=== PATIENT | male | born 1950 | race African-American/Black ===

== ENCOUNTER 2017-08-14 14:10 | Inpatient (IN) | payer OTHER, BC ==
[2017-08-14] VITALS (8 sets, daily range): BP systolic 152–187
[~2017-08-14] VITALS: Ht 175.3 cm; Wt 95.3 kg
[~2017-08-14 14:10] MED LIST: LEVE1000 PO; METO25TA6 PO; NIFE60TA83 PO; RIVA20TA PO; ROSU20TA PO; VALS160T2 PO
--- NOTE | 2017-08-14 14:10 | NUR ---
Patient brought in BLS c/c unable to urinate and blood in stool.
--- NOTE | 2017-08-14 14:12 | NUR ---
Patient placed in bed 2.
--- NOTE | 2017-08-14 14:30 | NUR ---
MD Mejias at bedside.
[2017-08-14] MEDS ORDERED: NACL 0.9% 1,000 ML IV SCH (14:58)
[2017-08-14] MEDS ORDERED: NACL 0.9% 1,000 ML IV ONE (15:15)
[2017-08-14 15:31] LABS: INR 1.2 (0.80-1.20); PROTHROMBIN TIME 12.5 SECS (9.5-12.5)
[2017-08-14 15:35] LABS: HEMATOCRIT 50.9 % (36-54); HEMOGLOBIN 16.8 g/dL (14.0-18.0); LYMPHOCYTES # (AUTO) 0.6 K/uL (1.0-5.5); MEAN CORPUSCULAR HEMOGLOBIN 31 pg (27-31); MEAN CORPUSCULAR HGB CONC 33 % (32-36); MEAN CORPUSCULAR VOLUME 93 fL (79.0-98.0); MONOCYTES # (AUTO) 0.4 K/uL (0.0-1.0); MONOCYTES % (AUTO) 7.6 % (1.7-9.3); NEUTROPHILS # (AUTO) 4.1 K/uL (1.8-7.7); PLATELET COUNT (AUTO) 142 K/uL (130-430); RED BLOOD CELL COUNT(AUTO) 5.46 MIL/uL (4.2-6.2); RED CELL DISTRIBUTION WIDTH 12.8 % (9.0-15.0); WHITE BLOOD COUNT (AUTO) 5.2 K/uL (4.8-10.8)
[2017-08-14 15:39] LABS: BASOPHILS % (AUTO) 0.4 % (0.0-2.0); EOSINOPHILS # (AUTO) 0.1 K/uL (0.0-0.4)
[2017-08-14 15:40] LABS: CALCIUM 9.3 mg/dL (8.4-11.0); CREATININE 1.24 mg/dL (0.55-1.30); POTASSIUM 4.1 mmol/L (3.5-5.1)
[2017-08-14 16:00] LABS: ALBUMIN 3.6 g/dL (3.4-4.8); TOTAL BILIRUBIN 1.4 mg/dL (0.0-1.0)
[2017-08-14 16:07] LABS: BILIRUBIN,URINE NEGATIVE (NEGATIVE); CLARITY/URINE CLEAR (CLEAR); COLOR,URINE YELLOW (YELLOW); GLUCOSE,URINE NEGATIVE (NEGATIVE); KETONES,URINE TRACE (NEGATIVE); LEUKOCYTE ESTERASE ,URINE NEGATIVE (NEGATIVE); NITRITE, URINE NEGATIVE (NEGATIVE); PH,URINE 5.5 (5.0-8.0); PROTEIN URINE 2+ (NEGATIVE); UROBILINOGEN,URINE 0.2 (0.2-1.0)
[2017-08-14 16:08] LABS: BLOOD, URINE TRACE (NEGATIVE)
[2017-08-14 16:29] LABS: BACTERIA,URINE FEW /HPF (None Seen); WBC,URINE 0-3 /HPF (0-3)
--- NOTE | 2017-08-14 16:30 | NUR ---
Patient reassessed resting comfortably remains on monitoring analyst w/ SR noted, VSS, IV infusing well no infiltration noted, condition stable. Pt has no complaints at this time.
[2017-08-14] MEDS ORDERED: hydrALAZINE HCL 20 MG/ML VIAL IVP ONE (17:00)
[2017-08-14 17:15] LABS: LYMPHOCYTES # (AUTO) 0.5 K/uL (1.0-5.5)
[2017-08-14 17:34] LABS: HEMOGLOBIN 16.5 g/dL (14.0-18.0)
--- NOTE | 2017-08-14 17:45 | NUR ---
Patient will be admitted to [facility]. Admitted to unit. Will go to room . Belongings list completed. Summary report printed. Report will be given at bedside.
--- NOTE | 2017-08-14 17:46 | NUR ---
TO ICU. ADMITTED PT TO ROOM 3, PT AWAKE AND ALERT, SALINE LOCK IN LEFT HAND, 22 GAUGE CATHETER, PT DENIES CHEST PAIN, TURNED PT TO HIS SIDE, MODERATE AMOUNT OF BOWEL MOVEMENT, BROWNISH-RED COLOR, PT AFRAID TO TURN OR MOVE, "COZ EACH TIME I TURN I FEEL SOMETHING IS COMING OUT FROM MY BUTT", GOOD PERINEAL CARE RENDERED, CHG WIPES USED TO HIS TRUNK, ARMS, LEGS, JEAN CATHETER IN PLACE.
[2017-08-14 17:51] LABS: BASOPHILS # (AUTO) 0.1 K/uL (0.0-0.2); BASOPHILS % (AUTO) 1.9 % (0.0-2.0); EOSINOPHILS % (AUTO) 0.2 % (0.0-4.0); HEMATOCRIT 50.8 % (36-54); LYMPHOCYTES % (AUTO) 6.6 % (20.5-51.5); MEAN CORPUSCULAR HEMOGLOBIN 30 pg (27-31); MEAN CORPUSCULAR HGB CONC 33 % (32-36); MEAN CORPUSCULAR VOLUME 92 fL (79.0-98.0); MONOCYTES # (AUTO) 0.5 K/uL (0.0-1.0); MONOCYTES % (AUTO) 7.5 % (1.7-9.3); NEUTROPHILS # (AUTO) 5.8 K/uL (1.8-7.7); NEUTROPHILS % (AUTO) 83.8 % (40.0-70.0); PLATELET COUNT (AUTO) 157 K/uL (130-430); RED CELL DISTRIBUTION WIDTH 12.6 % (9.0-15.0); WHITE BLOOD COUNT (AUTO) 6.9 K/uL (4.8-10.8)
[2017-08-14] MEDS ORDERED: PANTOPRAZOLE SODIUM 40 MG in NS 50 ML IV SCH (18:15)
[2017-08-14] MEDS ORDERED: PANTOPRAZOLE SODIUM 80 MG in NS 100 ML IV ONE (18:15)
--- NOTE | 2017-08-14 18:28 | NUR ---
CONSULT. MESSAGE LEFT TO AYAN TO CONSULT DR COCHRAN, ANSWERING SERVICE STATED THAT DR HARRIS SPEARS IS REVERBERATORY FURNACE SUPERVISOR FOR [facility].
[2017-08-14] MEDS ORDERED: PANTOPRAZOLE SODIUM 40 MG/VIAL (PROTONIX) IVP ONE (18:30)
--- NOTE | 2017-08-14 18:37 | NUR ---
CONSULT. CALLED ANSWERING SERVICE, SPOKE TO LEENA, MESSAGE TO CONSULT DR PALOMINO, GOVERNOR ASSEMBLER HYDRAULIC IS DR OH.
--- NOTE | 2017-08-14 18:41 | NUR ---
. DR WOOTEN CAME IN AND EXAMINED PT. INFORMED OF LATEST TROPONIN. DR SPEARS RETURNED THE CALL. READ OUT PT'S TROPONIN LEVELS AND EKG, PT ON SINUS RHYTHM, DENIES CHEST PAINS, NO SHORTNESS OF BREATH. STATED THAT HE WILL COME IN TO SEE PT TOMORROW.
--- NOTE | 2017-08-14 19:00 | NUR ---
IV. ANOTHER IV ACCESS INSERTED IN LEFT A/C, USED 20 GAUGE CATHETER, NOTED GOOD BLOOD RETURN.
--- NOTE | 2017-08-14 19:10 | NUR ---
[place]ble of care: Received patient AAO x 4. Patient on RA, saturating at 95%. IV site: 20G LAC infusing NS @ 60mls/hr, no redness or infection noted. Patient on raman, urine draining to gravity. Safety precautions in place. POC discussed, no further questions at this time. Code status discussed and patient confirms full code. HOB elevated, call light within reach. Bed locked, in lowest position. Will continue to monitor.
--- NOTE | 2017-08-14 19:12 | NUR ---
. DR OH CALLED. REPORTED PT'S STATUS, CURRENT HEMOGLOBIN 16.5 , HEMATOCRIT 50.8, STATED "WILL COME IN TO SEE PT TOMORROW".
[2017-08-14] MEDS: LR 1,000 ML IV SCH (19:15)
[2017-08-14] MEDS: HYDROCORTISONE ACETATE 1 SUPP (ANUSOL HC) RC SCH (20:14)
[2017-08-14] MEDS: levETIRAcetam 500 MG TABLET PO SCH (21:19)
[2017-08-14] MEDS: METOPROLOL TARTRATE 25 MG TABLET PO SCH (21:20)
[2017-08-14] MEDS ORDERED: NIFEDIPINE 30 MG TAB.ER.24 PO ONE (23:42)
[2017-08-15] VITALS (11 sets, daily range): BP systolic 136–173
--- NOTE | 2017-08-15 01:25 | NUR ---
notified with pt c/o rectal pain scale 10/10. also elevated bp. orders received.
[2017-08-15] MEDS ORDERED: MORPHINE 4 MG/ML INJ. SYRINGE IVP PRN (01:30)
[2017-08-15] MEDS ORDERED: MORPHINE 2 MG/ML INJ. SYRINGE IVP PRN (01:30)
[2017-08-15] MEDS ORDERED: cloNIDine HCL 0.1 MG TABLET PO PRN (01:30)
[2017-08-15] MEDS ORDERED: ONDANSETRON HCL 4 MG/2 ML VIAL IVP PRN (01:30)
[2017-08-15] MEDS ORDERED: MORPHINE 4 MG/ML INJ. SYRINGE ONE (01:36)
[2017-08-15] MEDS ORDERED: ONDANSETRON HCL 4 MG/2 ML VIAL ONE (01:37)
[2017-08-15] MEDS ORDERED: cloNIDine HCL 0.1 MG TABLET ONE (01:44)
--- NOTE | 2017-08-15 01:45 | NUR ---
PRN pain medication given per MD order. No signs of SOB or acute distress noted. Will continue to monitor.
--- NOTE | 2017-08-15 04:50 | NUR ---
Pt resting in bed. VSS. Denies any pain at this time. Will continue to monitor.
[2017-08-15 07:00] LABS: CALCIUM 8.5 mg/dL (8.4-11.0); CREATININE 1.02 mg/dL (0.55-1.30); POTASSIUM 3.1 mmol/L (3.5-5.1)
[2017-08-15 07:01] LABS: HEMATOCRIT 46.1 % (36-54); HEMOGLOBIN 15.2 g/dL (14.0-18.0); MEAN CORPUSCULAR HEMOGLOBIN 31 pg (27-31); MEAN CORPUSCULAR HGB CONC 33 % (32-36); MEAN CORPUSCULAR VOLUME 93 fL (79.0-98.0); PLATELET COUNT (AUTO) 151 K/uL (130-430); RED BLOOD CELL COUNT(AUTO) 4.99 MIL/uL (4.2-6.2); RED CELL DISTRIBUTION WIDTH 12.6 % (9.0-15.0); WHITE BLOOD COUNT (AUTO) 6.6 K/uL (4.8-10.8)
--- NOTE | 2017-08-15 07:15 | NUR ---
ENDORSEMENT Pt care endorsed to day shift RN.
[2017-08-15 07:22] LABS: TOTAL IRON BIND. CAPACITY 207 ug/dL (250-450)
[2017-08-15 07:23] LABS: ALBUMIN 2.9 g/dL (3.4-4.8); FREE T4 (FREE THYROXINE) 1.1 ng/dl (0.8-1.5); TOTAL BILIRUBIN 2.3 mg/dL (0.0-1.0)
--- NOTE | 2017-08-15 07:30 | NUR ---
AM ASSESSMENT Pt received laying in bed with eyes open. Pt is awake, alert and oriented to person time and place. Even and symmetrical rise and fall of chest, Pt on Room Air O2 saturation 97%. Pt states that he does have pain "in the butt" as stated by pt, but is currently 0/10 as of right now. Will continue to monitor pt. IV #20 Left AC infusing LR @ 60 cc/hr and #22 Left Hand S.L. No signs of injury or complaints of distress, will continue to monitor.
--- NOTE | 2017-08-15 08:19 | NUR ---
Nutrition Update Dale Scale 17 noted. Pt admitted for GI bleed Diet: clear liquid no red BMI: 31 kg/m2 RD to follow per nutrition care standards.
[2017-08-15] MEDS: PANTOPRAZOLE SODIUM 40 MG/VIAL (PROTONIX) IVP SCH ×2 (08:40→22:17)
[2017-08-15] MEDS: ATORVASTATIN 20 MG TABLET PO SCH (08:40)
[2017-08-15] MEDS: HYDROCORTISONE ACETATE 1 SUPP (ANUSOL HC) RC SCH ×2 (08:41→22:32)
[2017-08-15] MEDS: levETIRAcetam 500 MG TABLET PO SCH ×2 (08:41→22:17)
[2017-08-15] MEDS: VALSARTAN 160 MG TABLET (DIOVAN) PO SCH (08:41)
[2017-08-15] MEDS ORDERED: ROSUVASTATIN CALCIUM 5 MG/TAB (CRESTOR) PO SCH (09:00)
--- NOTE | 2017-08-15 09:10 | NUR ---
MD Dr. Ragland at bedside with pt.
[2017-08-15] MEDS: METOPROLOL TARTRATE 25 MG TABLET PO SCH ×2 (09:23→22:18)
[2017-08-15] MEDS: NIFEDIPINE 30 MG TAB.ER.24 PO SCH (09:23)
[2017-08-15] MEDS: LR 1,000 ML IV SCH (09:27)
--- NOTE | 2017-08-15 09:29 | NUR ---
NURSING CALLED UP DR COCHRAN, FOR CARDIAC CLEARANCE, PT FOR COLONOSCOPY PER DR SIMONS, LEFT MESSAGE TO MIREYA, ANSWERING SERVICE.
[2017-08-15 09:43] LABS: ATYPICAL LYMPHOCYTES % 0 % (0-0); BAND % (MANUAL) 3 % (0-6); BASOPHILS % (MANUAL) 0 % (0-2); EOSINOPHILS % (MANUAL) 0 % (0-7); LYMPHOCYTES % (MANUAL) 14 % (20-46); MONOCYTES % (MANUAL) 6 % (0-11)
[2017-08-15] MEDS ORDERED: KCL 20 mEq in 100 mL (PREMIX) 200 ML IV ONE (09:45)
[2017-08-15] MEDS ORDERED: POTASSIUM CHLORIDE 20 MEQ TAB.PRT.SR PO ONE ×2 (10:15)
[2017-08-15] MEDS ORDERED: TAMSULOSIN HCL 0.4 MG CAP PO ONE ×2 (10:15→10:45)
--- NOTE | 2017-08-15 10:50 | NUR ---
EKG Bedside EKG being performed for pt
--- NOTE | 2017-08-15 11:00 | NUR ---
ECHO Bedside ECHO being performed for pt.
--- NOTE | 2017-08-15 11:18 | NUR ---
Report Report given to Sheryl ex [id number]. Pt connected to portable monitor. Vital signs stable. No signs of injury or distress. Pt transferred to TELE.
--- NOTE | 2017-08-15 11:45 | NUR ---
patient transferred from ICU a this time. report given by nurse delgado. Patient in no distress at this time. patient made comfortable in bed. call light within reach. safety precautions observed. will continue to monitor.
--- NOTE | 2017-08-15 13:30 | NUR ---
PATIENT RESTING: Patient resting quietly. No acute distress noted. Vital signs within normal range.
--- NOTE | 2017-08-15 16:17 | NUR ---
JEAN CATHETER REMOVAL PATIENTS JEAN CATHETER WAS REMOVED AT THIS TIME. 10 CC SYRINGE WAS USED TO DEFLATE THE BALLOON. PATIENT IN NO DISTRESS TOLERATED WELL.
[2017-08-15] MEDS ORDERED: BISACODYL 5 MG TABLET.DR (DULCOLAX) PO ONE (17:00)
[2017-08-15] MEDS ORDERED: GOLYTELY / COLYTE SOLUTION 4 LITERS PO ONE (18:00)
--- NOTE | 2017-08-15 18:01 | NUR ---
PT HE WANT GET UP TO USE THE RESTROOM BUT WE TRY BUT SO HARD TO WALK I TOLD HIM TO USE THE URNAIL AND BED AVILA BUT HE REFUSE I TOLD HIS NURSE SHE TOLD ME DONT GET HIM UP BECAUSE HIS HARD AND HE WANT WALK IN ROOM
--- NOTE | 2017-08-15 19:00 | NUR ---
closing note all needs met through shift. care endorsed to mold shifter.
--- NOTE | 2017-08-15 19:30 | NUR ---
INITIAL NOTE Patient resting on the bed. No acute distress. Respiration even and unlabored. Alert, awake, verbally responsive with forgetful. Skin warm and dry to touch. Noted IV on left hand was out. Discussed the safety issue, use call light when need help, NPO after midnight, continue to drink Golytely, and plan of care, verbally understanding. Safety measure maintained. Bed locked with low position, padded side rails up. Call light within reached. Will insert new IV and continue to monitor.
--- NOTE | 2017-08-15 19:55 | NUR ---
A NEW IV INSERTED Restarted on RFA, gauge 22 with good blood return. Procedure tolerated well. Resumed current IVF of LR and regulated at 60ml/hr. Will observe for any signs of infiltration.
[2017-08-15] MEDS ORDERED: POTASSIUM CHLORIDE 20 MEQ TAB.PRT.SR PO SCH (21:00)
[2017-08-15] MEDS ORDERED: TAMSULOSIN HCL 0.4 MG CAP PO SCH (21:00)
--- NOTE | 2017-08-15 21:22 | NUR ---
ASSISTED TO BATHROOM WITH LOOSE BM
[2017-08-15] MEDS: POTASSIUM CHLORIDE 20 MEQ TAB.PRT.SR PO SCH (22:17)
--- NOTE | 2017-08-15 23:15 | NUR ---
BATHROOM Assisted patient to bathroom with brownish loose BM. Safety measure maintained. Call light within reached. Continue to monitor.
[2017-08-16] VITALS: BP_SYST 141
--- NOTE | 2017-08-16 | NUR ---
STARTED NPO AT THIS TIME Patient resting on the bed. No acute distress. IV intact, IVF infusing well. Assisted patient to bathroom with loose BM. However, Golytely not completed. Patient stated that the stomach full cannot drink that much. Will do tape enema in the morning. Safety measure maintained. Bed in low position, padded side rails up. Call light within reached. Continue to monitor.
--- NOTE | 2017-08-16 | NUR ---
Opening note Received patient awake, alert, and oriented x4. No s/s of distress noted. IV noted to the left hand g20 running at prescribed rate. BUE are strong, BLE are weak. Plan of care reviewed, patient verbalizes understanding. Bed is down, locked, side rails up x2, call light within reach, bed alarm on, seizure precautions in place. Will continue to monitor. Addendum: 08/17/17 at 0046 by Nanci Pandey RN correction; wrong time entered
--- NOTE | 2017-08-16 02:40 | NUR ---
ROUND Patient resting on the bed with eyes closed. No acute distress. Respiration even and unlabored. IV intact, IVF infusing well. Safety measure maintained. Bed locked with low position, padded side rails up. Call light within reached. Continue to monitor.
--- NOTE | 2017-08-16 04:20 | NUR ---
TAP WATER ENEMA STARTED
--- NOTE | 2017-08-16 06:48 | NUR ---
CLOSING NOTE Patient resting on the bed. No acute distress. Patient refused to do tap water enema any more because too tired. Total of 12L of tap water done but still with watery brown output, not clear yet. IV intact, IVF infusing well. No seizure activity noted during shift. All need met. Hourly rounding during shift. Safety measure maintained. Call light within reached. Bed in low position, padded side rails up, bed alarm on. Will endorse to morning shift nurse.
--- NOTE | 2017-08-16 07:09 | NUR ---
PAGE CALLED FOR DR. SIMONS. SPOKE TO DYLON, DIALED [phone].
[2017-08-16 07:18] LABS: POTASSIUM 3.1 mmol/L (3.5-5.1)
[2017-08-16 07:19] LABS: BASOPHILS % (AUTO) 0.4 % (0.0-2.0); EOSINOPHILS # (AUTO) 0.1 K/uL (0.0-0.4); EOSINOPHILS % (AUTO) 0.9 % (0.0-4.0); HEMATOCRIT 50.8 % (36-54); HEMOGLOBIN 16.2 g/dL (14.0-18.0); LYMPHOCYTES # (AUTO) 0.8 K/uL (1.0-5.5); LYMPHOCYTES % (AUTO) 11.9 % (20.5-51.5); MEAN CORPUSCULAR HEMOGLOBIN 30 pg (27-31); MEAN CORPUSCULAR HGB CONC 32 % (32-36); MEAN CORPUSCULAR VOLUME 93 fL (79.0-98.0); MONOCYTES # (AUTO) 0.4 K/uL (0.0-1.0); MONOCYTES % (AUTO) 6.6 % (1.7-9.3); NEUTROPHILS # (AUTO) 5.3 K/uL (1.8-7.7); NEUTROPHILS % (AUTO) 80.2 % (40.0-70.0); PLATELET COUNT (AUTO) 160 K/uL (130-430); RED BLOOD CELL COUNT(AUTO) 5.44 MIL/uL (4.2-6.2); RED CELL DISTRIBUTION WIDTH 12.9 % (9.0-15.0); WHITE BLOOD COUNT (AUTO) 6.6 K/uL (4.8-10.8)
[2017-08-16] MEDS ORDERED: SORBITOL 70% SOLUTION, 30 ML UDBTL PO ONE (07:30)
[2017-08-16] MEDS ORDERED: BISACODYL 5 MG TABLET.DR (DULCOLAX) PO ONE (07:30)
[2017-08-16] MEDS ORDERED: MAGNESIUM CITRATE 300 ML ORAL SOLUTION PO ONE (07:30)
--- NOTE | 2017-08-16 07:30 | NUR ---
Initial notes: Patient awake, alert and oriented. Stable. I.V. access patent. Call light within reach. Safety and seizure precaution in placed. Dr. Ragland informed patient BM is no clear and table games shift manager nursed received new orders. Received report from table games shift manager.
--- NOTE | 2017-08-16 07:35 | NUR ---
TU MCCLURE CALLED BACK Received the call back from Dr. Ragland, informed MD patient the bowel still with watery brown color not clear yet. Patient did not completed Golytely only take half. Tap water enema did total 12L and almost 3hrs, patient refused to continue because too tired. Dr. Ragland with order Magnesium citrate 300ml,PO, Dulcolax 4 tabsPO, 5mg each tab, Sorbital 100ml PO. Order read back and okay to MD. Endorsed to morning shift Gabi HUITRON.
[2017-08-16 07:40] LABS: INR 1.6 (0.80-1.20); PROTHROMBIN TIME 16.7 SECS (9.5-12.5)
--- NOTE | 2017-08-16 08:15 | NUR ---
Medication: patient additional medication given for BM.
[2017-08-16 08:21] VITALS: BP_SYST 166
[2017-08-16] MEDS: HYDROCORTISONE ACETATE 1 SUPP (ANUSOL HC) RC SCH ×3 (08:33→21:58)
[2017-08-16] MEDS: PANTOPRAZOLE SODIUM 40 MG/VIAL (PROTONIX) IVP SCH ×2 (08:33→21:57)
[2017-08-16] MEDS: levETIRAcetam 500 MG TABLET PO SCH ×2 (08:33→21:56)
[2017-08-16] MEDS: TAMSULOSIN HCL 0.4 MG CAP PO SCH (08:34)
[2017-08-16] MEDS: POTASSIUM CHLORIDE 20 MEQ TAB.PRT.SR PO SCH ×2 (08:34→21:55)
[2017-08-16] MEDS: NIFEDIPINE 30 MG TAB.ER.24 PO SCH (08:34)
[2017-08-16] MEDS: METOPROLOL TARTRATE 25 MG TABLET PO SCH ×2 (08:35→21:56)
[2017-08-16] MEDS: ATORVASTATIN 20 MG TABLET PO SCH (08:36)
[2017-08-16] MEDS: VALSARTAN 160 MG TABLET (DIOVAN) PO SCH ×2 (08:36→21:57)
[2017-08-16] MEDS ORDERED: SIMETHICONE 40 MG/0.6 ML ML ONE (08:56)
[2017-08-16] MEDS ORDERED: POTASSIUM CHLORIDE 40 MEQ, LIDOCAINE JECT 2% PF 100 MG 50 MG in NS 250 ML IV ONE (10:45)
--- NOTE | 2017-08-16 11:00 | NUR ---
BM: Patient went to toilet and had a clear BM.
[2017-08-16] MEDS ORDERED: hydrALAZINE HCL 20 MG/ML VIAL IVP PRN (12:00)
[2017-08-16] MEDS: LR 1,000 ML IV SCH (12:10)
[2017-08-16 12:32] VITALS: BP_SYST 167
--- NOTE | 2017-08-16 13:45 | NUR ---
Transfer to G.I. lab: Patient transferred to G.I. lab for colonoscopy.
[2017-08-16] MEDS ORDERED: CHLORTHALIDONE 25 MG TABLET (HYGROTON) PO ONE (14:20)
--- NOTE | 2017-08-16 14:52 | NUR ---
DC plan is to return to [facility] [place]--On day of discharge, call [facility] as early as possible to schedule pickers material handlers for 3pm or earlier. Per pt, sister Hazel might be available to take him home to [facility] when he gets discharged. VARGAS HUITRON
[2017-08-16] MEDS: MIDAZOLAM HCL 5 MG/5 ML VIAL ONE ×2 (14:54→14:56)
[2017-08-16] MEDS: MEPERIDINE HCL/PF 100 MG/ML AMP ONE ×2 (14:54→14:56)
--- NOTE | 2017-08-16 16:25 | NUR ---
Back in his room: Patient colonoscopy done and back in his room.
--- NOTE | 2017-08-16 17:06 | NUR ---
rounds: patient on bed sleeping. no distress noted.
--- NOTE | 2017-08-16 18:55 | NUR ---
Closing notes: Patient on bed talking on the phone. Stable. Needs attended. Safety measures in placed. Call light within reach. Report will be given at night custodian.
--- NOTE | 2017-08-16 19:03 | NUR ---
Opening note Received patient awake, alert, and oriented x4. No s/s of distress noted. IV noted to the left hand g20 running at prescribed rate. BUE are strong, BLE are weak. Plan of care reviewed, patient verbalizes understanding. Bed is down, locked, side rails up x2, call light within reach, bed alarm on, seizure precautions in place. Will continue to monitor.
[2017-08-16 20:00] VITALS: BP_SYST 111
[2017-08-16 20:05] VITALS: BP_SYST 134
--- NOTE | 2017-08-16 21:01 | NUR ---
Rounds Patient assisted to the bathroom and safely back to bed. Patient tolerated well. SCDs placed back on BLE. Bed is down, locked, side rails up x2, call light within reach, bed alarm on, seizure precautions in place. Will continue to monitor.
--- NOTE | 2017-08-16 23:02 | NUR ---
Rounds Patient assisted to the bathroom and safely back to bed. Patient tolerated well. SCDs placed back on legs. Denies further needs at this time. Bed is down, locked, side rails up x2, call light within reach, bed alarm on, seizure precautions in place. Will continue to monitor.
--- NOTE | 2017-08-17 01:01 | NUR ---
Rounds Patient is resting in bed with eyes closed. No s/s of respiratory distress at this time. Bed is down, locked, side rails up x2, call light within reach, bed alarm on, seizure precautions in place. Will continue to monitor.
[2017-08-17 01:12] VITALS: BP_SYST 151
--- NOTE | 2017-08-17 03:03 | NUR ---
Rounds Patient is resting in bed. No s/s of respiratory distress noted. Bed is down, locked, side rails up x2, call light within reach, bed alarm on, seizure precautions in place. Will continue to monitor.
[2017-08-17] MEDS: LR 1,000 ML IV SCH ×2 (03:26→13:10)
--- NOTE | 2017-08-17 05:08 | NUR ---
Rounds Patient is resting in bed. No s/s of distress. Denies needs at this time. Bed is down, locked, side rails up x2, call light within reach, bed alarm on, seizure precautions in place. Will continue to monitor.
[2017-08-17 06:29] LABS: BASOPHILS % (AUTO) 0.5 % (0.0-2.0); EOSINOPHILS # (AUTO) 0.1 K/uL (0.0-0.4); HEMATOCRIT 50.5 % (36-54); HEMOGLOBIN 16.7 g/dL (14.0-18.0); LYMPHOCYTES # (AUTO) 0.7 K/uL (1.0-5.5); LYMPHOCYTES % (AUTO) 8.3 % (20.5-51.5); MEAN CORPUSCULAR HEMOGLOBIN 31 pg (27-31); MEAN CORPUSCULAR HGB CONC 33 % (32-36); MEAN CORPUSCULAR VOLUME 93 fL (79.0-98.0); MONOCYTES # (AUTO) 0.5 K/uL (0.0-1.0); MONOCYTES % (AUTO) 5.9 % (1.7-9.3); NEUTROPHILS # (AUTO) 7.2 K/uL (1.8-7.7); NEUTROPHILS % (AUTO) 84.3 % (40.0-70.0); PLATELET COUNT (AUTO) 169 K/uL (130-430); RED BLOOD CELL COUNT(AUTO) 5.44 MIL/uL (4.2-6.2); RED CELL DISTRIBUTION WIDTH 13.1 % (9.0-15.0); WHITE BLOOD COUNT (AUTO) 8.5 K/uL (4.8-10.8)
--- NOTE | 2017-08-17 06:40 | NUR ---
Closing note Patient is resting in bed with eyes closed. No s/s of respiratory distress noted at this time. IV is patent on left hand forearm g20 with fluids running at prescribed rate. All needs met and anticipated by noc. Bed is down, locked, side rails up x2, call light within reach, bed alarm on, seizure precautions in place. Will endorse to day shift nurse.
[2017-08-17 07:15] LABS: CREATININE 1.01 mg/dL (0.55-1.30); POTASSIUM 3.1 mmol/L (3.5-5.1)
--- NOTE | 2017-08-17 07:15 | NUR ---
INITIAL NOTE RECEIVED PATIENT FROM PROFESSIONAL ENGINEER NURSE, PATIENT IS AWAKE ALERT AND ORIENTED X4, PATIENT HAS NO SIGNS OF DISTRESS, PATIENT HAS IV IN LEFT HAND, FLUIDS CURRENTLY INFUSING, NO SIGNS OF INFILTRATION NOTED, INSTRUCTED PATIENT TO USE CALL MORAN IF ASSISTANCE IS NEEDED, PATIENT VERBALIZED UNDERSTANDING, CALL MORAN LEFT IN THE LOWEST POSITION, SIDE RAILS UP, SEIZURE PADS IN PLACE, FALL AND SEIZURE PRECAUTIONS IN PLACE, WILL CONTINUE TO MONITOR.
[2017-08-17 07:33] LABS: CALCIUM 9.1 mg/dL (8.4-11.0)
[2017-08-17 08:00] VITALS: BP_SYST 154
[2017-08-17] MEDS: PANTOPRAZOLE SODIUM 40 MG/VIAL (PROTONIX) IVP SCH ×2 (08:34→21:22)
[2017-08-17] MEDS: VALSARTAN 160 MG TABLET (DIOVAN) PO SCH ×2 (08:36→21:24)
[2017-08-17] MEDS: levETIRAcetam 500 MG TABLET PO SCH ×2 (08:36→21:23)
[2017-08-17] MEDS: ATORVASTATIN 20 MG TABLET PO SCH (08:36)
[2017-08-17] MEDS: METOPROLOL TARTRATE 25 MG TABLET PO SCH ×2 (08:37→21:23)
[2017-08-17] MEDS: NIFEDIPINE 30 MG TAB.ER.24 PO SCH (08:37)
[2017-08-17] MEDS: TAMSULOSIN HCL 0.4 MG CAP PO SCH (08:37)
[2017-08-17] MEDS: POTASSIUM CHLORIDE 20 MEQ TAB.PRT.SR PO SCH ×2 (08:37→21:24)
--- NOTE | 2017-08-17 08:43 | NUR ---
MEDICATION PATIENT RECEIVED MORNING MEDICATION, EDUCATED PATIENT ON POTENTIAL SIDE EFFECTS, PATIENT VERBALIZED UNDERSTANDING, NO OTHER NEEDS AT THIS TIME, WILL CONTINUE TO MONITOR, FALL AND SEIZURE PRECAUTIONS IN PLACE, WILL CONTINUE TO MONITOR.
[2017-08-17] MEDS ORDERED: CHLORTHALIDONE 25 MG TABLET (HYGROTON) PO SCH (09:00)
--- NOTE | 2017-08-17 10:25 | NUR ---
RN ROUNDS PATIENT RESTING IN BED WITH EYES CLOSED, NO SIGNS OF DISTRESS NOTED, BREATHING EVEN AND UNLABORED, CALL MORAN WITHIN REACH OF PATIENT, WILL CONTINUE TO MONITOR, FALL PRECAUTIONS IN PLACE
[2017-08-17 12:12] VITALS: BP_SYST 146
--- NOTE | 2017-08-17 12:40 | NUR ---
RN ROUNDS PATIENT WATCHING TV, PATIENT IN NO DISTRESS, PATIENT HAS NO COMPLAINTS OF PAIN, WILL CONTINUE TO MONITOR, FALL PRECAUTIONS IN PLACE.
--- NOTE | 2017-08-17 13:45 | NUR ---
PHYSICAL THERAPY CO-SIGN The Physical Therapy Progress Notes documented by Underground Miner have been reviewed. I concur with the documentation of this ALTERATION TAILOR APPRENTICE. Plan: continue PT as per plan of care if he remains in this hospital. Reviewed/Co-Signed by: Ana Luisa Espinosa, PT Documentation Done by: Pablo Argueta, ALTERATION TAILOR APPRENTICE Addendum: 08/17/17 at 1442 by Ana Luisa Espinosa PT Amended: Links added.
--- NOTE | 2017-08-17 14:30 | NUR ---
RN ROUNDS PATIENT RESTING WITH EYES CLOSED, NO SIGNS OF DISTRESS NOTED, PATIENT IN STABLE CONDITION, CALL MORAN LEFT NEXT TO PATIENT'S HAND, BED IN LOWEST POSITION, WILL CONTINUE TO MONITOR, FALL AND SEIZURE PRECAUTIONS IN PLACE.
[2017-08-17] MEDS ORDERED: POTASSIUM CHLORIDE 20 MEQ TAB.PRT.SR PO ONE (15:30)
[2017-08-17] MEDS ORDERED: QUEtiapine FUMARATE 25 MG TABLET PO ONE (16:00)
[2017-08-17 16:03] VITALS: BP_SYST 131
--- NOTE | 2017-08-17 16:14 | NUR ---
RN ROUNDS ASSISTED PATIENT TO RESTROOM, PATIENT TOLERATED WELL, NO OTHER NEEDS AT THIS TIME, WILL CONTINUE TO MONITOR, FALL AND SEIZURE PRECAUTIONS IN PLACE
--- NOTE | 2017-08-17 18:51 | NUR ---
CLOSING NOTE PATIENT RESTING IN BED WITH EYES CLOSED, NO SIGNS OF DISTRESS NOTED, PATIENT'S BREATHING IS EVEN AND UNLABORED, PATIENT'S IV INTACT, ALL NEEDS MET, WILL ENDORSE PATIENT TO FAITH HEALER NURSE, BED IN LOWEST POSITION, SIDE RAILS UP, BED ALARM ON, FALL AND SEIZURE PRECAUTIONS IN PLACE.
--- NOTE | 2017-08-17 19:54 | NUR ---
INITIAL NOTES RECEIVED PATIENT ON BED SLEEPING AND RESTING, ON SEMI GARCÍA'S POSITION, BREATHING EVEN AND UNLABORED, NO SOB NOTED, NO PAIN NOTED, STATED THAT HE IS CURRENTLY NOT HAVING ANY PAIN. MAINTAINED POSITION OF COMFORT MAINTAINED FALL AND SAFETY PRECAUTION, MAINTAINED PADDED SIDE RAILS. EXPLAINED THE PLAN OF CARE AND VERBALIZED UNDERSTANDING. ENCOURAGED TO DO DEEP BREATHING EXERCISES, AND RELAXATION. WILL CONTINUE TO MONITOR. CALL LIGHT WITHIN REACH.
[2017-08-17 20:00] VITALS: BP_SYST 111
[2017-08-17] MEDS: HYDROCORTISONE ACETATE 1 SUPP (ANUSOL HC) RC SCH (21:27)
[2017-08-17] MEDS: QUEtiapine FUMARATE 25 MG TABLET PO SCH (21:27)
--- NOTE | 2017-08-17 22:00 | NUR ---
RN ROUNDS PATIENT WAS ASSISTED TO THE BATHROOM TOLERATED WELL. MAINTAINED SAFETY PRECAUTION, BREATHING EVEN AND UNLABORED. WENT BACK TO THE BED SAFELY. WILL CONTINUE TO MONITOR CALL LIGHT WITHIN REACH.
[2017-08-18] VITALS: BP_SYST 121
--- NOTE | 2017-08-18 00:10 | NUR ---
RN ROUNDS PATIENT SLEEPING AND RESTING ON BED BREATHING EVEN AND UNLABORED, MAINTAINED ON POSITION OF COMFORT MAINTAINED SAFETY PRECAUTION, MAINTAINED PADDED SIDE RAILS. WILL CONTINUE TO MONITOR CALL LIGHT WITHIN REACH.
--- NOTE | 2017-08-18 02:18 | NUR ---
RN ROUNDS PATIENT ON BED SLEEPING AND RESTING, BREATHING EVEN AND UNLABORED, MAINTAINED POSITION OF COMFORT, MAINTAINED SAFETY AND FALL PRECAUTIONS. WILL CONTINUE TO MONITOR CALL LIGHT WITHIN REACH.
--- NOTE | 2017-08-18 04:11 | NUR ---
RN ROUNDS PATIENT ON BED SLEEPING AND RESTING BREATHING EVEN AND UNLABORED NO SOB NOTED. MAINTAINED SAFETY PRECAUTIONS MAINTAINED POSITION OF COMFORT PADDED SIDE RAILS MAINTAINED, CALL LIGHT WITHIN REACH WILL CONTINUE TO MONITOR.
--- NOTE | 2017-08-18 06:41 | NUR ---
CLOSING NOTES PATIENT ON BED SLEEPING AND RESTING BREATHING EVEN AND UNLABORED, NO SOB NOTED, MAINTAINED SAFETY AND FALL PRECAUTIONS, MAINTAINED POSITION OF COMFORT ENCOURAGED TO TURN FROM SIDE TO SIDE. MAINTAINED PADDED SIDE RAILS. NO PAIN NOTED. IV INTACT CLEAN AND DRY, WILL GIVE REPORT TO AM NURSE, WILL CONTINUE TO MONITOR, CALL LIGHT WITHIN REACH.
[2017-08-18 07:13] LABS: CALCIUM 9.3 mg/dL (8.4-11.0); CREATININE 1.23 mg/dL (0.55-1.30); POTASSIUM 3.8 mmol/L (3.5-5.1)
[2017-08-18 08:00] VITALS: BP_SYST 152
--- NOTE | 2017-08-18 08:05 | NUR ---
INITIAL NOTE RECEIVED REPORT AND PATIENT FROM INSIDE CONTRACTOR SALES NURSE. ASSISTED PATIENT TO THE BATHROOM WITH WALKER. PATIENT REMAINS AWAKE, ALERT, VERBALLY RESPONSIVE. DENIES ANY PAIN AT THIS TIME. VS STABLE. NO RESPIRATORY DISTRESS NOTED, BED LOCKED, ON LOWEST POSITION, BED ALARM ACTIVATED, CALL LIGHT ON HAND, WILL CONTINUE TO MONITOR.
[2017-08-18] MEDS: levETIRAcetam 500 MG TABLET PO SCH (08:50)
[2017-08-18] MEDS: TAMSULOSIN HCL 0.4 MG CAP PO SCH (08:51)
[2017-08-18] MEDS: ATORVASTATIN 20 MG TABLET PO SCH (08:51)
[2017-08-18] MEDS: HYDROCORTISONE ACETATE 1 SUPP (ANUSOL HC) RC SCH (08:51)
[2017-08-18] MEDS: QUEtiapine FUMARATE 25 MG TABLET PO SCH (08:51)
[2017-08-18] MEDS: POTASSIUM CHLORIDE 20 MEQ TAB.PRT.SR PO SCH (08:51)
[2017-08-18] MEDS: NIFEDIPINE 30 MG TAB.ER.24 PO SCH (08:52)
[2017-08-18] MEDS: VALSARTAN 160 MG TABLET (DIOVAN) PO SCH (08:52)
[2017-08-18] MEDS: PANTOPRAZOLE SODIUM 40 MG/VIAL (PROTONIX) IVP SCH (08:53)
[2017-08-18] MEDS: METOPROLOL TARTRATE 25 MG TABLET PO SCH (08:53)
--- NOTE | 2017-08-18 10:30 | NUR ---
ROUNDS PATIENT IN BED, REMAINS AWAKE, ALERT, VERBALLY RESPONSIVE. DENIES ANY PAIN AT THIS TIME, VS STABLE, NO RESPIRATORY DISTRESS OBSERVED. CALL LIGHT WITHIN REACH, WILL CONTINUE TO MONITOR.
--- NOTE | 2017-08-18 11:44 | NUR ---
SPOKE WITH DR LAMONT MD MADE AWARE OF PATIENT IN HER CARE NOW. MD WAS AWARE, MD UPDATED ON PATIENT HOME HEALTH ARRANGED PER ANDERS FROM CASE MANAGEMENT AND PATIENT CAN BE PICKED UP TODAY ANYTIME BEFORE 3 PM, MD TO PLACE DISCHARGE ORDER AND DO MEDICATION RECONCILIATION. WILL FOLLOW UP
[2017-08-18 12:44] VITALS: BP_SYST 151
--- NOTE | 2017-08-18 13:05 | NUR ---
ROUNDS PATIENT IN BED, JUST FINISHED EATING LUNCH, ASKING FOR SOME ICE CREAM. NO SHORTNESS OF BREATH OBSERVED. BED LOCKED, ON LOWEST POSITION, BED ALARM ACTIVATED. WILL CONTINUE TO MONITOR.
--- NOTE | 2017-08-18 14:43 | NUR ---
DISCHARGE PLANNING - Discharge to SNF C/[facility] ph: [phone], informed them that pt is ready for discharge w/ HH for disease management and PT. She stated that [facility] a [facility] living and do not take residents needing Pt or disease management. Dr. Alves made aware. Dr. Alves discharged pt. to SNF.
--- NOTE | 2017-08-18 15:48 | NUR ---
C/S with pt's person to notify, his sister Hazel Thayer ph: [phone]. Informed her that [facility] can not take his brother/pt back due to his senior living needs. She verbalized understanding and is agreeable. Informed her [facility] most likely will take him if pt and family will agree. Sister Hazel agreed to admission to [facility]. Called and spoke with Sara ph: [phone] at [facility] admission. Faxed intake [phone]. Called and spoke with Sara ph: [phone] to follow up. They will take pt to room 210. Informed them will arrange ambulance pick-up and transfer by 5 pm today. They agreed. Informed pt of transfer details and he agreed. Informed him sister knows where he will be. C/S with his sister Hazel Thayer ph: [phone] of details of transfer today and she agreed and was thankful for th egood care his brother got from the staff - particularly the doctors and nurses. [facility] ambulance ph: [phone] called and agreed to 5PM bead picker. Nurses RN, Patricia and Erick made aware and gave them transfer pocket.
--- NOTE | 2017-08-18 16:08 | NUR ---
CORRECTION : AMBULANCE TRANSFER IS WITH [facility] ph: [phone], rock picker at 5PM.
[2017-08-18 16:15] VITALS: BP_SYST 137
[2017-08-18 16:35] VITALS: BP_SYST 137
--- NOTE | 2017-08-18 16:45 | NUR ---
REPORT GIVEN TALKED AND GAVE REPORT TO ELANA LANDERS FROM [facility].
--- NOTE | 2017-08-18 16:55 | NUR ---
PATIENT IS STREET COMMISSIONER PATIENT IS STREET COMMISSIONER VIA GURNEY BY [facility] EMT. REPORT IS GIVEN. PATIENT IS AWAKE, ALERT, VERBALLY RESPONSIVE. DENIES ANY PAIN, NO SHORTNESS OF BREATH. VS STABLE.
== END 2017-08-18 16:55 | DRG 377 ==
LOC: SED 14:10 → SIC 17:45 → STU 08-15 11:45 → SMU 08-17 15:16
PROVIDERS: ADMIT Internal Medicine; ATTEND Internal Medicine
PROC: 0DBL8ZZ Excision of Transverse Colon, Via Natural or Artificial Opening Endoscopic (ICD-10-PCS; 2017-08-16)
PROC: 0DBK8ZZ Excision of Ascending Colon, Via Natural or Artificial Opening Endoscopic (ICD-10-PCS; principal; 2017-08-16 14:00)
DX: K62.5 Hemorrhage of anus and rectum (principal); I21.A1 Myocardial infarction type 2; I42.9 Cardiomyopathy, unspecified; I48.0 Paroxysmal atrial fibrillation; D68.32 Hemorrhagic disorder due to extrinsic circulating anticoagulants; D12.2 Benign neoplasm of ascending colon; D12.3 Benign neoplasm of transverse colon; G40.909 Epilepsy, unspecified, not intractable, without status epilepticus; I48.92 Unspecified atrial flutter; E78.5 Hyperlipidemia, unspecified; K64.9 Unspecified hemorrhoids; K63.5 Polyp of colon; R33.9 Retention of urine, unspecified; E87.6 Hypokalemia; I10 Essential (primary) hypertension; K64.8 Other hemorrhoids; Z79.01 Long term (current) use of anticoagulants; Z86.73 Personal history of transient ischemic attack (TIA), and cerebral infarction without residual deficits; Z87.891 Personal history of nicotine dependence; Z88.1 Allergy status to other antibiotic agents; Z88.8 Allergy status to other drugs, medicaments and biological substances; Z79.899 Other long term (current) drug therapy
CPT/HCPCS: 36415; 45384; 80048; 80053; 80061; 81000-TC; 83036; 83540-TC; 83550-TC; 83735-TC; 83880; 84439; 84484; 85007; 85025; 85027; 85610-TC; 85730-TC; 86886; 86900; 86901; 87081; 88305; 93005; 93306; 96361; 96374; 96375; 97110-GP; 97116-GP; 97530-GP; 99285; C9113; J0360; J2175; J2250; J2270; J2405; J3480; J7030; J7050; J7120

== ENCOUNTER 2021-06-23 08:30 | Inpatient (IN) | payer OTHER, SELFPAY ==
[2021-06-23] VITALS (12 sets, daily range): BP systolic 77–119
[~2021-06-23] VITALS: Ht 177.8 cm; Wt 77.1 kg
[~2021-06-23 08:30] MED LIST changes: +ACET325T PO; +AMIO200T66 PO; +COR25 PO; +DIGO0.12 PO; +DOCU-156 PO; +HYDR25TA4 PO; -LEVE1000 PO; +LEVE500T21 PO; +LORA10TA7 PO; +MAGN400C PO; -METO25TA6 PO; -NIFE60TA83 PO; +ROSU10TA2 PO; -ROSU20TA PO; +SACU1TAB PO; +SENN8.6T19 PO; +SIME80TA15 PO; +TRAM50TA PO; -VALS160T2 PO
--- NOTE | 2021-06-23 08:47 | NUR ---
ER at bedside examining patient.
--- NOTE | 2021-06-23 09:04 | NUR ---
lab at bedside
--- NOTE | 2021-06-23 09:05 | NUR ---
REPORT RECEIVED, PT HYPOTENSIVE AT 76/39, PT AAOX3, FORGETFUL. DENIES ANY DIZZINESS OR LIGHTHEADNESS. RESP EVEN AND UNLABORED, ON RA @98%. SKIN W/D/I. IV SL TO LEFT AC, #18 FROM [employer], NS-500CC INFUSING. SAFETY PRECAUTIONS IN PLACE.
[2021-06-23 09:19] LABS: BASOPHILS % (AUTO) 0.6 % (0.0-2.0); EOSINOPHILS # (AUTO) 0.1 K/uL (0.0-0.4); HEMATOCRIT 23.3 % (36-54); LYMPHOCYTES # (AUTO) 0.6 K/uL (1.0-5.5); LYMPHOCYTES % (AUTO) 11.3 % (20.5-51.5); MEAN CORPUSCULAR HEMOGLOBIN 18 pg (27-31); MEAN CORPUSCULAR HGB CONC 29 % (32-36); MEAN CORPUSCULAR VOLUME 62 fL (79.0-98.0); MONOCYTES # (AUTO) 0.4 K/uL (0.0-1.0); MONOCYTES % (AUTO) 7.4 % (1.7-9.3); NEUTROPHILS # (AUTO) 4.4 K/uL (1.8-7.7); NEUTROPHILS % (AUTO) 78.7 % (40.0-70.0); PLATELET COUNT (AUTO) 230 K/uL (130-430); RED BLOOD CELL COUNT(AUTO) 3.76 MIL/uL (4.2-6.2); RED CELL DISTRIBUTION WIDTH 19.2 % (9.0-15.0); WHITE BLOOD COUNT (AUTO) 5.6 K/uL (4.8-10.8)
[2021-06-23 09:30] LABS: HEMOGLOBIN 6.8 g/dL (14.0-18.0)
[2021-06-23 09:53] LABS: CALCIUM 8.8 mg/dL (8.4-11.0); CREATININE 2.36 mg/dL (0.55-1.30); POTASSIUM 4.2 mmol/L (3.5-5.1); TOTAL BILIRUBIN 0.7 mg/dL (0.0-1.0)
[2021-06-23 09:54] LABS: ALBUMIN 3.5 g/dL (3.4-4.8)
--- NOTE | 2021-06-23 10:01 | NUR ---
manufacturing technician at bedside to collect additonal blood work.
[2021-06-23 10:05] LABS: INR 1.2 (0.80-1.20); PROTHROMBIN TIME 12.7 SECS (9.5-12.5)
[2021-06-23 10:07] LABS: DIGOXIN 1.2 ng/mL (0.80-2.00)
--- NOTE | 2021-06-23 10:14 | NUR ---
Notified ED Admitting regarding Dr. Banks request for admission. Per Dr. Loving, pt is not stable for transfer. Will contact immigration case manager regarding this matter.
--- NOTE | 2021-06-23 10:25 | NUR ---
md aware of pt c/o chroonic back pain
--- NOTE | 2021-06-23 10:33 | NUR ---
Per ED Admitting, reinsurance clerk request fax of facesheet and clinicals. attn: Tori fax: [phone] per facesheet: [facility]
--- NOTE | 2021-06-23 10:47 | NUR ---
[facility] called back to speak to Dr. Banks regarding pt status.
--- NOTE | 2021-06-23 11:13 | NUR ---
LILIAN GAVE AUTH TO ADMIT [id number]
--- NOTE | 2021-06-23 11:21 | NUR ---
ICU AWARE OF PTS ADMISSION, CALLED FOR BED PLACEMENT, SPOKE WITH YESSICA
--- NOTE | 2021-06-23 11:44 | NUR ---
PT REQUESTED TO USE URINAL-PROVIDED. 400 CC YELLOW CLEAR URINE.
--- NOTE | 2021-06-23 12:47 | NUR ---
PT WITH EYES CLOSED, IN NAD. RESP EVEN AND UNLABORED, ON RA @98% VSS AT THIS TIME.
--- NOTE | 2021-06-23 13:47 | NUR ---
CONSULTATION PAGED PRIORITY: ROUTINE REASON FOR CONSULTATION?:A-FIB WAS CONSULT CALLED:Y PERSON WHO WAS NOTIFIED:FRANCES CONSULTING PHYSICIAN:MICHAELA NEWMAN SUGAR REPROCESS OPERATOR HEAD SPECIALTY:CARDIO SUGAR REPROCESS OPERATOR HEAD PHONE NUMBER:[phone]
--- NOTE | 2021-06-23 13:48 | NUR ---
CONSULTATION PAGED PRIORITY: ROUTINE REASON FOR CONSULTATION?:A-FIB WAS CONSULT CALLED:Y PERSON WHO WAS NOTIFIED:RYLAN CONSULTING PHYSICIAN:LINDA LANDAVERDE LINE SUPERVISOR SPECIALTY:PULMONARY LINE SUPERVISOR PHONE NUMBER:[phone]
--- NOTE | 2021-06-23 13:59 | NUR ---
Patient will be admitted to care of DR . Admitted to unit. Will go to room . Belongings list completed. Complete and up to date summary report printed. SBAR report to be given at bedside with opportunity for questions.
--- NOTE | 2021-06-23 14:15 | NUR ---
Patient Recieved Patient has been transferred to ICU. Report received from ER nurse. Patient is lying in bed comfortable. VSS. Patient is Alert and Oriented x4 with a 20 gauge IV in his Left arm, no fluids running. Patient does has a skin tear on left knee he received when falling at [facility]. All care assumed, will continue to monitor patient.
[2021-06-23] MEDS: PANTOPRAZOLE SODIUM 40 MG/VIAL (PROTONIX) IVP SCH (20:07)
--- NOTE | 2021-06-23 20:07 | NUR ---
Completed head to toe assessment. Educated patient on pending medication and reason for order for blood transfusion. Patient refuses medications and blood transfusion. Patient will be monitored closely for any acute changes.
[2021-06-23] MEDS ORDERED: ACETAMINOPHEN 325 MG TABLET PO PRN ×2 (21:45→22:00)
[2021-06-23] MEDS ORDERED: traMADol HCL HCL 50 MG TABLET (ULTRAM) PO PRN (21:45)
[2021-06-23] MEDS ORDERED: HYDROcodone/ACETAMIN 5-325 MG TAB (NORCO/ VICODIN) PO PRN (22:00)
[2021-06-23] MEDS ORDERED: NALOXONE HCL 0.4 MG/ML AMP (NARCAN) IVP PRN ×2 (22:00)
[2021-06-23] MEDS: D5/0.45 NS 1,000 ML IV SCH (22:00)
[2021-06-23] MEDS ORDERED: ONDANSETRON HCL 4 MG/2 ML VIAL IVP PRN (22:00)
[2021-06-23] MEDS ORDERED: LORazepam 2 MG/ML VIAL IVP PRN (22:00)
[2021-06-24] VITALS (19 sets, daily range): BP systolic 105–162
--- NOTE | 2021-06-24 06:16 | NUR ---
Patient refused all medications during this shift Patient was educated on the interventions ordered. Will continue to monitor patient closely for any acute changes.
[2021-06-24 06:36] LABS: BASOPHILS % (AUTO) 0.6 % (0.0-2.0); EOSINOPHILS # (AUTO) 0.1 K/uL (0.0-0.4); EOSINOPHILS % (AUTO) 1.8 % (0.0-4.0); HEMATOCRIT 23.6 % (36-54); LYMPHOCYTES # (AUTO) 0.9 K/uL (1.0-5.5); LYMPHOCYTES % (AUTO) 14.6 % (20.5-51.5); MEAN CORPUSCULAR HEMOGLOBIN 18 pg (27-31); MEAN CORPUSCULAR HGB CONC 29 % (32-36); MEAN CORPUSCULAR VOLUME 62 fL (79.0-98.0); MONOCYTES # (AUTO) 0.5 K/uL (0.0-1.0); MONOCYTES % (AUTO) 8.7 % (1.7-9.3); NEUTROPHILS # (AUTO) 4.4 K/uL (1.8-7.7); PLATELET COUNT (AUTO) 221 K/uL (130-430); RED CELL DISTRIBUTION WIDTH 19.1 % (9.0-15.0)
--- NOTE | 2021-06-24 07:06 | NUR ---
Change of shift bedside report received from Gabbie RN, met pt awake alert oriented x4 denies pain, HR uncontrolled FIB 106, on room air O2 sat 96%, call light, urinal, bedside table at reach and bed in low position. Provides in depth education on his care plan, necessity for blood transfusion, bedside monitoring as he in ICU he verbalized understanding and encouraged to states his concerns. Ongoing monitoring and support
[2021-06-24 07:26] LABS: CALCIUM 8.6 mg/dL (8.4-11.0); CREATININE 1.94 mg/dL (0.55-1.30); PHOSPHORUS 2.9 mg/dL (2.7-4.5); POTASSIUM 4.2 mmol/L (3.5-5.1)
[2021-06-24 07:53] LABS: HEMOGLOBIN 6.8 g/dL (14.0-18.0)
[2021-06-24 07:54] LABS: NEUTROPHILS % (AUTO) 74.3 % (40.0-70.0)
--- NOTE | 2021-06-24 08:35 | NUR ---
Nutrition Update Dale Scale 17 noted. Pt admitted for long-term (current) use of anticoagulants. Diet: cardiac BMI: 24.4 kg/m2 RD to follow per nutrition care standards.
--- NOTE | 2021-06-24 08:50 | NUR ---
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 Pt aware of the situation, condition for his admission, that he fell at his residence, refuses blood transfussion because he was afraid of blood infection, explained to him and he agreed to receive blood. Clonidine 0.1mg po q6h prn received to treat SBP >160.
[2021-06-24] MEDS ORDERED: HYDROCHLOROTHIAZIDE 25 MG TABLET (HCTZ) PO SCH (09:00)
[2021-06-24] MEDS ORDERED: DIGOXIN 0.125 MG PO SCH (09:00)
[2021-06-24] MEDS ORDERED: RIVAROXABAN 10 MG TABLET PO SCH (09:00)
[2021-06-24] MEDS ORDERED: CARVEDILOL 25 MG TABLET (COREG) PO SCH (09:00)
[2021-06-24] MEDS ORDERED: cloNIDine HCL 0.1 MG TABLET PO PRN (09:00)
[2021-06-24] MEDS ORDERED: MAGNESIUM OXIDE 400 MG TABLET PO SCH (09:00)
[2021-06-24] MEDS: PANTOPRAZOLE SODIUM 40 MG/VIAL (PROTONIX) IVP SCH ×2 (09:00→20:16)
[2021-06-24] MEDS ORDERED: SACUBITRIL/VALSARTAN 24 MG-26 MG 1 TABLET PO SCH (09:00)
--- NOTE | 2021-06-24 09:15 | NUR ---
Dr Monaco rounds on the pt at the bedside and adjusted some of the medications.
--- NOTE | 2021-06-24 09:18 | NUR ---
Consent signed by patient, Dr Juan R Rosa and witnessed by this RN.
--- NOTE | 2021-06-24 09:35 | NUR ---
MD CONSULT DR. GHOTRA - MD EXCHANGE CALLED FOR CONSULT RE: AMINA OH - NOTIFIED OF CONSULT, IN ICU. PATIENT SEEN AND EXAMINED.
--- NOTE | 2021-06-24 09:45 | NUR ---
Dr ALTHEA LIU saw pt at the bedside, plan for EGD/COLOSCOPY tomorrow 06/25 pt agreed to the procedure knowledgeable about it. Also said to repeat CBC if <7 to transfuse one more unit.
[2021-06-24] MEDS: levETIRAcetam 500 MG TABLET PO SCH ×2 (11:24→20:16)
[2021-06-24] MEDS: SIMETHICONE 80 MG TAB.CHEW PO SCH ×2 (11:35→20:16)
[2021-06-24] MEDS: DIGOXIN 0.125 MG TABLET PO SCH (11:36)
[2021-06-24] MEDS: DOCUSATE SODIUM 100 MG CAPSULE PO PRN (11:36)
[2021-06-24] MEDS: SENNOSIDES 8.6 MG TABLET PO SCH (11:37)
[2021-06-24] MEDS: AMIODARONE HCL 200 MG TABLET PO SCH ×2 (11:38→20:17)
[2021-06-24] MEDS: LORATADINE 10 MG TABLET PO SCH (11:38)
[2021-06-24] MEDS: ATORVASTATIN 20 MG TABLET PO SCH (11:39)
[2021-06-24] MEDS: D5/0.45 NS 1,000 ML IV SCH ×2 (11:57→17:02)
--- NOTE | 2021-06-24 14:30 | NUR ---
@1350 first unit PRBC transfusion started, prior education on blood transfusion, symptoms and pt verbalized understanding. Vitals signs stable no complain from pt and no changes noted
--- NOTE | 2021-06-24 14:40 | NUR ---
PT'S son called this RN asked for pt's consent , but pt decided to talk to his son first before given information about his condition, recalled pt's son from the telephone by the bedside consent obtained and updates on the pt's condition given to his son.
--- NOTE | 2021-06-24 16:25 | NUR ---
Blood transfusion completed no adverse reaction noted and no complain from pt vitals signs stable afebrile, tolerating all care well and support provided to alleviates anxiety.
[2021-06-24] MEDS ORDERED: BISACODYL 5 MG TABLET.DR (DULCOLAX) PO ONE (17:00)
[2021-06-24] MEDS ORDERED: GOLYTELY / COLYTE SOLUTION 4 LITERS PO ONE (18:00)
--- NOTE | 2021-06-24 19:35 | NUR ---
PM SHIFT ASSESSMENT Patient is alert and oriented. ST on the monitor. Skin warm and dry. IVF infusing to LAC with no signs of infiltration noted. Patient uses urinal to void. Safety precautions in place, call light within reach. Will continue to monitor.
--- NOTE | 2021-06-24 19:40 | NUR ---
Change of shift report to Elena HUITRON, updates on CBC lab order following first unit transfusion as per Dr OH'S order Meera preciado at the bedside for PREP EGD AND COLOSCOPY IN AM.
[2021-06-24] MEDS: CARVEDILOL 6.25 MG TABLET (COREG) PO SCH (20:18)
[2021-06-24] MEDS ORDERED: ROSUVASTATIN CALCIUM 5 MG/TAB (CRESTOR) PO SCH (21:00)
[2021-06-24 21:20] LABS: HEMATOCRIT 26.5 % (36-54)
--- NOTE | 2021-06-24 22:05 | NUR ---
PT RECEIVED FROM ICU IN STABLE CONDITION. PT ARRIVED IN STRETCHER, ALERT, ORIENTED x NPTE. PT PLACED IN BED. FWW AT BEDSIDE. GOLITELY CANISTER AT BEDSIDE AND PT INSTRUCTED TO COMPLETE DRINKING FLUID.
--- NOTE | 2021-06-24 22:10 | NUR ---
TRANSFER TO TELE Patient transferred to tele room 109A. All belongings sent with patient, report given bedside.
--- NOTE | 2021-06-25 07:06 | NUR ---
PT HAD BM THIS AM - LOOSE BUT NOT CLEAR. DATABASE PROGRAMMER SAW PT AND ASKED FOR F/U W TWE - EQUIPMENT REMOVED FROM [facility] - WILL ENDORSE TO DAY RN.
[2021-06-25] MEDS ORDERED: fentaNYL CITRATE/PF 100 MCG/2 ML AMP ONE (07:15)
--- NOTE | 2021-06-25 07:47 | NUR ---
TWE x>3 COMPLETED. PT ON BED EN ROUTE TO GI LAB FOR COLONOSCOPY&EGD. DR OH PRESENT. REPORT GIVEN TO DAY RN.
--- NOTE | 2021-06-25 07:48 | NUR ---
PT TO GI LAB Pt left floor to GI lab in no distress.
[2021-06-25] MEDS: MIDAZOLAM HCL 5 MG/5 ML VIAL ONE ×2 (08:06→08:12)
[2021-06-25] MEDS ORDERED: SIMETHICONE 40 MG/0.6 ML ML ONE (08:08)
[2021-06-25 09:08] VITALS: BP_SYST 115
--- NOTE | 2021-06-25 09:08 | NUR ---
PT BACK FROM GI LAB Received report from Robert HUTIRON from GI Lab. Received pt AAOx4, no s/s resp distress, no c/o pain or discomfort, vital signs stable. IVF infusing well via LAC at ordered rate with no s/s infiltration to site. Pt stated he is hungry-will check on diet order and get breakfast tray to pt if allowed. Side rails up x3, bed alarm on for safety, call light within reach.
[2021-06-25 09:38] LABS: EOSINOPHILS # (AUTO) 0.2 K/uL (0.0-0.4); EOSINOPHILS % (AUTO) 2.9 % (0.0-4.0); HEMATOCRIT 25.2 % (36-54); HEMOGLOBIN 7.7 g/dL (14.0-18.0); LYMPHOCYTES # (AUTO) 0.7 K/uL (1.0-5.5); MEAN CORPUSCULAR HEMOGLOBIN 20 pg (27-31); MEAN CORPUSCULAR HGB CONC 30 % (32-36); MEAN CORPUSCULAR VOLUME 64 fL (79.0-98.0); MONOCYTES # (AUTO) 0.6 K/uL (0.0-1.0); MONOCYTES % (AUTO) 10.2 % (1.7-9.3); PLATELET COUNT (AUTO) 175 K/uL (130-430); RED BLOOD CELL COUNT(AUTO) 3.92 MIL/uL (4.2-6.2); RED CELL DISTRIBUTION WIDTH 22.1 % (9.0-15.0)
[2021-06-25 09:59] LABS: BASOPHILS % (AUTO) 0.4 % (0.0-2.0); NEUTROPHILS # (AUTO) 4.5 K/uL (1.8-7.7)
[2021-06-25 10:00] LABS: NEUTROPHILS % (AUTO) 74.5 % (40.0-70.0)
[2021-06-25 10:03] LABS: CREATININE 1.53 mg/dL (0.55-1.30); PHOSPHORUS 2.7 mg/dL (2.7-4.5); POTASSIUM 3.7 mmol/L (3.5-5.1)
[2021-06-25] MEDS: levETIRAcetam 500 MG TABLET PO SCH ×2 (10:10→21:58)
[2021-06-25] MEDS: PANTOPRAZOLE SODIUM 40 MG/VIAL (PROTONIX) IVP SCH ×2 (10:10→21:57)
[2021-06-25] MEDS: MAGNESIUM OXIDE 400 MG TABLET PO SCH (10:11)
[2021-06-25] MEDS: SIMETHICONE 80 MG TAB.CHEW PO SCH ×2 (10:11→21:59)
[2021-06-25] MEDS: DIGOXIN 0.125 MG TABLET PO SCH (10:12)
[2021-06-25] MEDS: AMIODARONE HCL 200 MG TABLET PO SCH ×2 (10:12→21:58)
[2021-06-25] MEDS: SENNOSIDES 8.6 MG TABLET PO SCH (10:13)
[2021-06-25] MEDS: LORATADINE 10 MG TABLET PO SCH (10:20)
[2021-06-25] MEDS: ATORVASTATIN 20 MG TABLET PO SCH (10:20)
[2021-06-25] MEDS: CARVEDILOL 6.25 MG TABLET (COREG) PO SCH ×2 (10:21→21:59)
[2021-06-25 10:41] LABS: INR 1.1 (0.80-1.20); PROTHROMBIN TIME 11.7 SECS (9.5-12.5)
[2021-06-25 15:50] VITALS: BP_SYST 92
[2021-06-25] MEDS: D5/0.45 NS 1,000 ML IV SCH (16:13)
[2021-06-25 19:00] VITALS: BP_SYST 106
--- NOTE | 2021-06-25 19:25 | NUR ---
CLOSING NOTE Pt resting quietly in bed with no s/s resp distress, no c/o pain or discomfort. IVF infusing well at ordered rate with no s/s infiltration to site. Aspiration, skin and safety precautions remain in place. Needs met, call light within reach.
[2021-06-25 20:00] VITALS: BP_SYST 106
[2021-06-26] VITALS: BP_SYST 102
[2021-06-26] MEDS: HYDROcodone/ACETAMIN 10-325 MG TAB PO PRN ×3 (01:57→23:38)
[2021-06-26] MEDS: D5/0.45 NS 1,000 ML IV SCH ×2 (04:33)
[2021-06-26 07:55] VITALS: BP_SYST 103
--- NOTE | 2021-06-26 08:06 | NUR ---
INITIAL NOTES Received pt AAOx4, no s/s resp distress, no c/o pain or discomfort. Plan of care for the day reviewed with pt-pt verbalized his understanding. IVF infusing well to left hand at ordered rate with no s/s infiltration to site. Pain management, skin and safety discussed-teach back done. Side rails up x3, bed alarm on for safety. Call light within reach.
[2021-06-26] MEDS: PANTOPRAZOLE SODIUM 40 MG/VIAL (PROTONIX) IVP SCH ×2 (10:35→21:20)
[2021-06-26] MEDS: LORATADINE 10 MG TABLET PO SCH (10:35)
[2021-06-26] MEDS: levETIRAcetam 500 MG TABLET PO SCH ×2 (10:35→21:20)
[2021-06-26] MEDS: SIMETHICONE 80 MG TAB.CHEW PO SCH ×2 (10:36→21:20)
[2021-06-26] MEDS: DIGOXIN 0.125 MG TABLET PO SCH (10:36)
[2021-06-26] MEDS: ATORVASTATIN 20 MG TABLET PO SCH (10:36)
[2021-06-26] MEDS: AMIODARONE HCL 200 MG TABLET PO SCH ×2 (10:37→21:21)
[2021-06-26] MEDS: SENNOSIDES 8.6 MG TABLET PO SCH (10:37)
[2021-06-26] MEDS: CARVEDILOL 6.25 MG TABLET (COREG) PO SCH ×2 (10:37→21:22)
[2021-06-26] MEDS: MAGNESIUM OXIDE 400 MG TABLET PO SCH (10:38)
--- NOTE | 2021-06-26 14:52 | NUR ---
CM:EGD and Colonoscopy 06/25/21; Small hiatal hernia, poor bowel preparation, external hemorrhoids. IMPRESSION: 1. Small hiatal hernia. 2. External hemorrhoids. 3. Poor bowel preparation. RECOMMENDATIONS: 1. We can restart the diet and advance as tolerated. 2. Protonix once a day dosing likely is sufficient. 3. Trend hemoglobin, transfuse to keep above 7. 4. I would recommend a surveillance colonoscopy in 3 years' time given the marginal bowel preparation today and the history of polyps. 5. He can restart his blood thinner if needed tomorrow from a GI perspective.
[2021-06-26 16:13] VITALS: BP_SYST 111
--- NOTE | 2021-06-26 17:21 | NUR ---
IV RE-INSERTION: Pt accidently dislodged IV. Restarted on left hand. Successful after 1 attempts. Pt now refusing IVF-pt stated "I'm eating and drinking fluids-all it does is make me pee". Will inform .
[2021-06-26 19:00] VITALS: BP_SYST 120
--- NOTE | 2021-06-26 19:27 | NUR ---
CLOSING NOTE/MD VISIT Pt seen by Dr. Womack, wants to keep pt on telemetry. Pt resting quietly in bed with no c/o pain or discomfort. No s/s resp distress. Okay to D/C IVF per MD. Report given to shiftman nurse. Skin and safety precautions remain in place. Call light within reach.
[2021-06-26 20:00] VITALS: BP_SYST 120
[2021-06-27] VITALS: BP_SYST 118
[2021-06-27] MEDS: D5/0.45 NS 1,000 ML IV SCH ×2 (00:03→23:11)
[2021-06-27] MEDS: HYDROcodone/ACETAMIN 10-325 MG TAB PO PRN ×3 (03:29→11:53)
[2021-06-27 08:00] VITALS: BP_SYST 114
[2021-06-27 08:13] LABS: CALCIUM 8.1 mg/dL (8.4-11.0); CREATININE 1.55 mg/dL (0.55-1.30); POTASSIUM 3.7 mmol/L (3.5-5.1); TOTAL BILIRUBIN 0.7 mg/dL (0.0-1.0)
[2021-06-27] MEDS: ATORVASTATIN 20 MG TABLET PO SCH (09:00)
[2021-06-27] MEDS: MAGNESIUM OXIDE 400 MG TABLET PO SCH (11:46)
[2021-06-27] MEDS: DOCUSATE SODIUM 100 MG CAPSULE PO PRN (11:46)
[2021-06-27] MEDS: PANTOPRAZOLE SODIUM 40 MG/VIAL (PROTONIX) IVP SCH ×2 (11:46→23:13)
[2021-06-27] MEDS: levETIRAcetam 500 MG TABLET PO SCH ×2 (11:48→23:11)
[2021-06-27] MEDS: LORATADINE 10 MG TABLET PO SCH (11:49)
[2021-06-27] MEDS: SENNOSIDES 8.6 MG TABLET PO SCH (11:49)
[2021-06-27] MEDS: SIMETHICONE 80 MG TAB.CHEW PO SCH ×2 (11:50→23:14)
[2021-06-27] MEDS: CARVEDILOL 6.25 MG TABLET (COREG) PO SCH ×2 (11:51→23:12)
[2021-06-27] MEDS: DIGOXIN 0.125 MG TABLET PO SCH (11:51)
[2021-06-27] MEDS: AMIODARONE HCL 200 MG TABLET PO SCH ×2 (11:52→23:13)
[2021-06-27 12:00] VITALS: BP_SYST 119
[2021-06-27 16:00] VITALS: BP_SYST 112
[2021-06-27 21:56] VITALS: BP_SYST 111
[2021-06-28 00:21] VITALS: BP_SYST 131
--- NOTE | 2021-06-28 07:53 | NUR ---
HANDOFF/COS TO ELANA SKY .
[2021-06-28 08:00] VITALS: BP_SYST 125
[2021-06-28] MEDS: PANTOPRAZOLE SODIUM 40 MG/VIAL (PROTONIX) IVP SCH (09:00)
[2021-06-28] MEDS: DIGOXIN 0.125 MG TABLET PO SCH (09:00)
[2021-06-28 09:32] LABS: BASOPHILS % (AUTO) 0.5 % (0.0-2.0); EOSINOPHILS # (AUTO) 0.3 K/uL (0.0-0.4); EOSINOPHILS % (AUTO) 4.4 % (0.0-4.0); HEMOGLOBIN 7.2 g/dL (14.0-18.0); LYMPHOCYTES # (AUTO) 0.7 K/uL (1.0-5.5); LYMPHOCYTES % (AUTO) 11.8 % (20.5-51.5); MEAN CORPUSCULAR HEMOGLOBIN 19 pg (27-31); MEAN CORPUSCULAR HGB CONC 30 % (32-36); MEAN CORPUSCULAR VOLUME 64 fL (79.0-98.0); MONOCYTES # (AUTO) 0.7 K/uL (0.0-1.0); MONOCYTES % (AUTO) 11.7 % (1.7-9.3); NEUTROPHILS # (AUTO) 4.5 K/uL (1.8-7.7); NEUTROPHILS % (AUTO) 71.6 % (40.0-70.0); PLATELET COUNT (AUTO) 142 K/uL (130-430); RED BLOOD CELL COUNT(AUTO) 3.73 MIL/uL (4.2-6.2); WHITE BLOOD COUNT (AUTO) 6.3 K/uL (4.8-10.8)
[2021-06-28] MEDS ORDERED: PRO40 PO (09:49)
[2021-06-28] MEDS ORDERED: COR6.25 PO (09:49)
[2021-06-28] MEDS ORDERED: DIGO125T PO (09:49)
[2021-06-28] MEDS ORDERED: CLON0.1T PO (09:49)
[2021-06-28] MEDS: SIMETHICONE 80 MG TAB.CHEW PO SCH ×2 (11:06→20:43)
[2021-06-28] MEDS: ATORVASTATIN 20 MG TABLET PO SCH (11:06)
[2021-06-28] MEDS: levETIRAcetam 500 MG TABLET PO SCH ×2 (11:07→20:44)
[2021-06-28] MEDS: LORATADINE 10 MG TABLET PO SCH (11:07)
[2021-06-28] MEDS: CARVEDILOL 6.25 MG TABLET (COREG) PO SCH ×2 (11:08→20:43)
[2021-06-28] MEDS: MAGNESIUM OXIDE 400 MG TABLET PO SCH (11:10)
[2021-06-28] MEDS: AMIODARONE HCL 200 MG TABLET PO SCH ×2 (11:10→20:44)
[2021-06-28] MEDS: SENNOSIDES 8.6 MG TABLET PO SCH (11:11)
[2021-06-28] MEDS: HYDROcodone/ACETAMIN 10-325 MG TAB PO PRN (11:11)
[2021-06-28 12:00] VITALS: BP_SYST 130
[2021-06-28 16:00] VITALS: BP_SYST 136
--- NOTE | 2021-06-28 18:17 | NUR ---
PT. HGB 7.2 WITH NO SYMPTOMS. ORDER WRITTEN FOR PT. TO BE DISCHARGED. NEEDS TRANSPORTATION. REACHED OUT TO [facility], EMERGENCY CONTACT, WITH NO RESPONSE OR CALL BACK. REACHED OUT TO [facility] WITH NO RESPONSE. PT. UNABLE TO BE DISCHARGED DUE TO NO TRANSPORTATION BACK TO FACILITY.
--- NOTE | 2021-06-28 19:32 | NUR ---
opening note received report from day rn. RN states pt is being d/c. paperwork being completed. pt stable with vs wnl. safety precautions in place. Will continue to monitor.
[2021-06-28 20:20] VITALS: BP_SYST 120
--- NOTE | 2021-06-28 21:10 | NUR ---
D/C Patient Patient given medication reconciliation form and D/C instructions. Exit Care provided. Patient verbalized understanding. Ambulatory with assistance. Gait steady for discharge to home. Patient in stable condition, ID band removed. IV catheter removed, intact and dressing applied, no active bleeding. Rx of given. Patient educated on pain management. All belongings sent with patient.
== END 2021-06-28 21:10 | disposition home or self-care (01) | DRG 280 ==
LOC: SED 08:30 → SIC 11:18 → STU 06-24 23:39 → SMU 06-28 16:38
PROVIDERS: ADMIT Preventive Medicine Preventive Medicine/Occupational Environmental Medicine; ATTEND Preventive Medicine Preventive Medicine/Occupational Environmental Medicine
PROC: 30233N1 Transfusion of Nonautologous Red Blood Cells into Peripheral Vein, Percutaneous Approach (ICD-10-PCS; principal; 2021-06-24)
PROC: 0DJD8ZZ Inspection of Lower Intestinal Tract, Via Natural or Artificial Opening Endoscopic (ICD-10-PCS; 2021-06-25)
PROC: 0DB68ZX Excision of Stomach, Via Natural or Artificial Opening Endoscopic, Diagnostic (ICD-10-PCS; 2021-06-25 08:00)
DX: I21.4 Non-ST elevation (NSTEMI) myocardial infarction (principal); N17.0 Acute kidney failure with tubular necrosis; E44.0 Moderate protein-calorie malnutrition; I13.0 Hypertensive heart and chronic kidney disease with heart failure and stage 1 through stage 4 chronic kidney disease, or unspecified chronic kidney disease; I42.9 Cardiomyopathy, unspecified; I48.21 Permanent atrial fibrillation; Z20.822 Contact with and (suspected) exposure to COVID-19; D50.9 Iron deficiency anemia, unspecified; E11.22 Type 2 diabetes mellitus with diabetic chronic kidney disease; E83.41 Hypermagnesemia; E83.52 Hypercalcemia; G40.909 Epilepsy, unspecified, not intractable, without status epilepticus; I25.10 Atherosclerotic heart disease of native coronary artery without angina pectoris; I50.9 Heart failure, unspecified; K44.9 Diaphragmatic hernia without obstruction or gangrene; K63.5 Polyp of colon; I95.9 Hypotension, unspecified; K64.4 Residual hemorrhoidal skin tags; N18.9 Chronic kidney disease, unspecified; Z79.01 Long term (current) use of anticoagulants; Z86.73 Personal history of transient ischemic attack (TIA), and cerebral infarction without residual deficits; Z87.19 Personal history of other diseases of the digestive system; Z95.810 Presence of automatic (implantable) cardiac defibrillator; Z88.1 Allergy status to other antibiotic agents; Z88.8 Allergy status to other drugs, medicaments and biological substances; Z68.24 Body mass index [BMI] 24.0-24.9, adult
CPT/HCPCS: 36415; 43239; 45378; 71045; 76770; 80048; 80053; 80162; 82272; 83735; 84100; 84484; 85018; 85025; 85610-TC; 85730-TC; 86886; 86900; 86901; 86920; 88305; 88312; 88313; 93005; 99291; C9113; G0378; J2250; J2405; J3010; P9021

== ENCOUNTER 2022-12-19 23:33 | Inpatient (IN) | payer OTHER ==
[~2022-12-19] VITALS: Ht 180.3 cm; Wt 86.2 kg
[~2022-12-19 23:33] MED LIST changes: +CLON0.1T PO; -COR25 PO; +COR6.25 PO; -DIGO0.12 PO; +DIGO125T PO; +PRO40 PO
[2022-12-19 23:40] VITALS: BP_SYST 122; PULSE 80; RESP 18; TEMP 98.2; O2SAT 99
[2022-12-20 00:47] LABS: BASOPHILS # (AUTO) 0.1 K/uL (0.0-0.2); BASOPHILS % (AUTO) 1.3 % (0.0-2.0); EOSINOPHILS # (AUTO) 0.1 K/uL (0.0-0.4); HEMATOCRIT 46.2 % (36-54); HEMOGLOBIN 15.3 g/dL (14.0-18.0); LYMPHOCYTES # (AUTO) 0.6 K/uL (1.0-5.5); LYMPHOCYTES % (AUTO) 15.1 % (20.5-51.5); MEAN CORPUSCULAR HEMOGLOBIN 31 pg (27-31); MEAN CORPUSCULAR HGB CONC 33 % (32-36); MEAN CORPUSCULAR VOLUME 95 fL (79.0-98.0); MONOCYTES # (AUTO) 0.5 K/uL (0.0-1.0); NEUTROPHILS # (AUTO) 2.8 K/uL (1.8-7.7); NEUTROPHILS % (AUTO) 69.6 % (40.0-70.0); PLATELET COUNT (AUTO) 150 K/uL (130-430); RED BLOOD CELL COUNT(AUTO) 4.89 MIL/uL (4.2-6.2); RED CELL DISTRIBUTION WIDTH 13.5 % (9.0-15.0); WHITE BLOOD COUNT (AUTO) 4.1 K/uL (4.8-10.8)
[2022-12-20 00:56] LABS: ANION GAP 6 (5-15); CALCIUM 8.8 mg/dL (8.4-11.0); CHLORIDE 102 mmol/L (98-107); CREATININE 1.93 mg/dL (0.55-1.30); GLUCOSE 93 mg/dL (70-99); UREA NITROGEN, BLOOD 23 mg/dL (8-21)
[2022-12-20 01:15] LABS: ALANINE AMINOTRANSFERASE 28 U/L (12-78); ALBUMIN 3.5 g/dL (3.4-4.8); ASPARTATE AMINOTRANSFERASE 20 U/L (10-37); TOTAL BILIRUBIN 0.9 mg/dL (0.0-1.0)
[2022-12-20] MEDS ORDERED: TAMS-11 PO (01:39)
[2022-12-20] MEDS ORDERED: SACU1TAB PO (01:39)
[2022-12-20] MEDS ORDERED: CARV12.548 PO (01:39)
[2022-12-20] MEDS ORDERED: FLUT16SP16 NS (01:39)
[2022-12-20] MEDS ORDERED: FLUT50DI IH (01:44)
[2022-12-20] MEDS ORDERED: FERR325T30 PO (01:44)
[2022-12-20 06:26] LABS: INR 1.3 (0.80-1.20); PROTHROMBIN TIME 13.7 SECS (9.5-12.5)
[2022-12-20 06:34] LABS: EOSINOPHILS # (AUTO) 0.1 K/uL (0.0-0.4); EOSINOPHILS % (AUTO) 3.4 % (0.0-4.0); HEMATOCRIT 45.3 % (36-54); LYMPHOCYTES # (AUTO) 0.7 K/uL (1.0-5.5); LYMPHOCYTES % (AUTO) 18.1 % (20.5-51.5); MEAN CORPUSCULAR HEMOGLOBIN 32 pg (27-31); MEAN CORPUSCULAR HGB CONC 33 % (32-36); MEAN CORPUSCULAR VOLUME 95 fL (79.0-98.0); MONOCYTES # (AUTO) 0.4 K/uL (0.0-1.0); MONOCYTES % (AUTO) 11.2 % (1.7-9.3); NEUTROPHILS # (AUTO) 2.6 K/uL (1.8-7.7); NEUTROPHILS % (AUTO) 66.3 % (40.0-70.0); PLATELET COUNT (AUTO) 151 K/uL (130-430); RED BLOOD CELL COUNT(AUTO) 4.75 MIL/uL (4.2-6.2); RED CELL DISTRIBUTION WIDTH 13.6 % (9.0-15.0)
[2022-12-20 06:38] LABS: ALANINE AMINOTRANSFERASE 22 U/L (12-78); ALBUMIN 3.4 g/dL (3.4-4.8); ANION GAP 4 (5-15); ASPARTATE AMINOTRANSFERASE 21 U/L (10-37); CALCIUM 8.7 mg/dL (8.4-11.0); CHLORIDE 103 mmol/L (98-107); CREATININE 1.96 mg/dL (0.55-1.30); GLUCOSE 77 mg/dL (70-99); THYROID STIMULATING HORMONE 2.56 uIu/mL (0.36-3.74); TOTAL BILIRUBIN 1.1 mg/dL (0.0-1.0); UREA NITROGEN, BLOOD 23 mg/dL (8-21)
[2022-12-20] MEDS ORDERED: traMADol HCL HCL 50 MG TABLET (ULTRAM) PO PRN (08:00)
[2022-12-20] MEDS ORDERED: DIGOXIN 0.125 MG TABLET PO SCH (09:00)
[2022-12-20 09:14] VITALS: BP_SYST 136; PULSE 72; RESP 18; TEMP 97.6; O2SAT 97
[2022-12-20] MEDS: CARVEDILOL 12.5 MG TABLET (COREG) PO SCH ×2 (09:50→20:56)
[2022-12-20] MEDS: TAMSULOSIN HCL 0.4 MG CAP PO SCH (09:50)
[2022-12-20] MEDS: levETIRAcetam 500 MG TABLET PO SCH ×2 (09:53→20:50)
[2022-12-20] MEDS: RIVAROXABAN 10 MG TABLET PO SCH (09:53)
[2022-12-20] MEDS: AMIODARONE HCL 200 MG TABLET PO SCH ×2 (09:54→20:49)
[2022-12-20] MEDS: MAGNESIUM OXIDE 400 MG TABLET PO SCH (09:56)
[2022-12-20] MEDS: PANTOPRAZOLE SODIUM 40 MG TAB PO SCH ×2 (09:56→20:49)
[2022-12-20] MEDS: FLUTICASONE PROPIONATE 50 mCg/SPRAY 16 GM NS SCH (09:59)
[2022-12-20] MEDS: SACUBITRIL/VALSARTAN 24 MG-26 MG 1 TABLET PO SCH ×2 (09:59→20:50)
[2022-12-20 10:05] LABS: CHOLESTEROL 131 mg/dL (<200); HDL CHOLESTEROL 61 mg/dL (>45); TRIGLYCERIDES 38 mg/dL (30-150)
[2022-12-20 12:45] VITALS: BP_SYST 117; PULSE 71; RESP 16; TEMP 97.6; O2SAT 96
[2022-12-20 16:19] VITALS: BP_SYST 106; BP_SYST 95; PULSE 73; RESP 14; TEMP 97.4; O2SAT 97
[2022-12-20 20:07] VITALS: BP_SYST 93; PULSE 69; RESP 16; TEMP 97.6; O2SAT 95
[2022-12-20] MEDS: ATORVASTATIN 20 MG TABLET PO SCH (20:49)
[2022-12-20] MEDS ORDERED: ROSUVASTATIN CALCIUM 5 MG/TAB (CRESTOR) PO SCH (21:00)
[2022-12-20 22:26] VITALS: BP_SYST 93; PULSE 69; RESP 16; TEMP 97.6; O2SAT 95
[2022-12-21 00:01] VITALS: BP_SYST 111; PULSE 86; RESP 16; TEMP 97.5; O2SAT 99
[2022-12-21 05:35] LABS: ANION GAP 4 (5-15); CALCIUM 8.6 mg/dL (8.4-11.0); CHLORIDE 104 mmol/L (98-107); CREATININE 1.83 mg/dL (0.55-1.30); GLUCOSE 75 mg/dL (70-99); UREA NITROGEN, BLOOD 23 mg/dL (8-21)
[2022-12-21 05:46] LABS: BASOPHILS % (AUTO) 0.8 % (0.0-2.0); EOSINOPHILS # (AUTO) 0.1 K/uL (0.0-0.4); EOSINOPHILS % (AUTO) 3.5 % (0.0-4.0); HEMATOCRIT 44.1 % (36-54); HEMOGLOBIN 14.7 g/dL (14.0-18.0); LYMPHOCYTES # (AUTO) 0.6 K/uL (1.0-5.5); LYMPHOCYTES % (AUTO) 17.6 % (20.5-51.5); MEAN CORPUSCULAR HEMOGLOBIN 32 pg (27-31); MEAN CORPUSCULAR HGB CONC 33 % (32-36); MEAN CORPUSCULAR VOLUME 94 fL (79.0-98.0); MONOCYTES # (AUTO) 0.4 K/uL (0.0-1.0); MONOCYTES % (AUTO) 12.3 % (1.7-9.3); NEUTROPHILS # (AUTO) 2.4 K/uL (1.8-7.7); NEUTROPHILS % (AUTO) 65.8 % (40.0-70.0); PLATELET COUNT (AUTO) 144 K/uL (130-430); RED BLOOD CELL COUNT(AUTO) 4.68 MIL/uL (4.2-6.2); WHITE BLOOD COUNT (AUTO) 3.7 K/uL (4.8-10.8)
[2022-12-21 05:53] LABS: ALANINE AMINOTRANSFERASE 24 U/L (12-78); ALBUMIN 3.2 g/dL (3.4-4.8); ASPARTATE AMINOTRANSFERASE 19 U/L (10-37); CHOLESTEROL 119 mg/dL (<200); DIGOXIN 0.7 ng/mL (0.80-2.00); HDL CHOLESTEROL 56 mg/dL (>45); THYROID STIMULATING HORMONE 2.06 uIu/mL (0.34-4.82); TOTAL BILIRUBIN 1.2 mg/dL (0.0-1.0); TRIGLYCERIDES 29 mg/dL (30-150)
[2022-12-21 08:10] VITALS: BP_SYST 150; PULSE 76; RESP 18; TEMP 97.7; O2SAT 98
[2022-12-21] MEDS: FLUTICASONE PROPIONATE 50 mCg/SPRAY 16 GM NS SCH (08:32)
[2022-12-21] MEDS: PANTOPRAZOLE SODIUM 40 MG TAB PO SCH ×2 (08:33→22:06)
[2022-12-21] MEDS: MAGNESIUM OXIDE 400 MG TABLET PO SCH (08:33)
[2022-12-21] MEDS: levETIRAcetam 500 MG TABLET PO SCH ×2 (08:33→22:06)
[2022-12-21] MEDS: RIVAROXABAN 10 MG TABLET PO SCH (08:36)
[2022-12-21] MEDS: TAMSULOSIN HCL 0.4 MG CAP PO SCH (08:37)
[2022-12-21] MEDS: CARVEDILOL 12.5 MG TABLET (COREG) PO SCH ×2 (08:38→21:00)
[2022-12-21] MEDS: AMIODARONE HCL 200 MG TABLET PO SCH ×2 (08:38→22:09)
[2022-12-21] MEDS: SACUBITRIL/VALSARTAN 24 MG-26 MG 1 TABLET PO SCH ×2 (09:20→22:09)
[2022-12-21 11:51] VITALS: BP_SYST 116; PULSE 97; RESP 16; TEMP 97.1; O2SAT 95
[2022-12-21 16:08] VITALS: BP_SYST 97; PULSE 70; RESP 16; TEMP 97.7; O2SAT 96
[2022-12-21 21:30] VITALS: O2SAT 99
[2022-12-21 21:35] VITALS: BP_SYST 111; PULSE 70; RESP 18; TEMP 98.4; O2SAT 99
[2022-12-21] MEDS: ATORVASTATIN 20 MG TABLET PO SCH (22:08)
[2022-12-22 01:58] VITALS: BP_SYST 120; PULSE 72; RESP 17; TEMP 98.8; O2SAT 99
[2022-12-22 06:17] LABS: BASOPHILS % (AUTO) 0.8 % (0.0-2.0); EOSINOPHILS # (AUTO) 0.1 K/uL (0.0-0.4); EOSINOPHILS % (AUTO) 3.5 % (0.0-4.0); HEMATOCRIT 43.3 % (36-54); HEMOGLOBIN 14.4 g/dL (14.0-18.0); LYMPHOCYTES # (AUTO) 0.5 K/uL (1.0-5.5); LYMPHOCYTES % (AUTO) 15.4 % (20.5-51.5); MEAN CORPUSCULAR HEMOGLOBIN 31 pg (27-31); MEAN CORPUSCULAR HGB CONC 33 % (32-36); MEAN CORPUSCULAR VOLUME 94 fL (79.0-98.0); MONOCYTES # (AUTO) 0.4 K/uL (0.0-1.0); MONOCYTES % (AUTO) 12.4 % (1.7-9.3); NEUTROPHILS # (AUTO) 2.4 K/uL (1.8-7.7); NEUTROPHILS % (AUTO) 67.9 % (40.0-70.0); PLATELET COUNT (AUTO) 144 K/uL (130-430); RED CELL DISTRIBUTION WIDTH 13.6 % (9.0-15.0); WHITE BLOOD COUNT (AUTO) 3.5 K/uL (4.8-10.8)
[2022-12-22 06:32] LABS: ANION GAP 4 (5-15); CALCIUM 8.5 mg/dL (8.4-11.0); CHLORIDE 103 mmol/L (98-107); CREATININE 1.81 mg/dL (0.55-1.30); GLUCOSE 75 mg/dL (74-106); UREA NITROGEN, BLOOD 19 mg/dL (8-21)
[2022-12-22] MEDS: AMIODARONE HCL 200 MG TABLET PO SCH ×2 (10:29→21:54)
[2022-12-22] MEDS: PANTOPRAZOLE SODIUM 40 MG TAB PO SCH ×2 (10:30→21:53)
[2022-12-22] MEDS: RIVAROXABAN 10 MG TABLET PO SCH (10:32)
[2022-12-22] MEDS: TAMSULOSIN HCL 0.4 MG CAP PO SCH (10:33)
[2022-12-22] MEDS: MAGNESIUM OXIDE 400 MG TABLET PO SCH (10:34)
[2022-12-22] MEDS: CARVEDILOL 12.5 MG TABLET (COREG) PO SCH ×2 (10:34→21:53)
[2022-12-22] MEDS: levETIRAcetam 500 MG TABLET PO SCH ×2 (10:34→21:54)
[2022-12-22] MEDS: SACUBITRIL/VALSARTAN 24 MG-26 MG 1 TABLET PO SCH ×2 (10:39→22:22)
[2022-12-22 20:00] VITALS: BP_SYST 122; PULSE 74; RESP 17; TEMP 98.2; O2SAT 99
[2022-12-22] MEDS: ATORVASTATIN 20 MG TABLET PO SCH (21:54)
[2022-12-23 02:14] VITALS: BP_SYST 113; PULSE 70; RESP 20; TEMP 97.7; O2SAT 97
[2022-12-23 08:00] VITALS: BP_SYST 129; PULSE 72; RESP 20; TEMP 97.9; O2SAT 99
[2022-12-23] MEDS: MAGNESIUM OXIDE 400 MG TABLET PO SCH (09:45)
[2022-12-23] MEDS: AMIODARONE HCL 200 MG TABLET PO SCH (09:46)
[2022-12-23] MEDS: RIVAROXABAN 10 MG TABLET PO SCH (09:46)
[2022-12-23] MEDS: CARVEDILOL 12.5 MG TABLET (COREG) PO SCH (09:47)
[2022-12-23] MEDS: levETIRAcetam 500 MG TABLET PO SCH (09:47)
[2022-12-23] MEDS: PANTOPRAZOLE SODIUM 40 MG TAB PO SCH (09:47)
[2022-12-23] MEDS: TAMSULOSIN HCL 0.4 MG CAP PO SCH (09:47)
[2022-12-23] MEDS: FLUTICASONE PROPIONATE 50 mCg/SPRAY 16 GM NS SCH ×2 (09:50→09:51)
[2022-12-23] MEDS: SACUBITRIL/VALSARTAN 24 MG-26 MG 1 TABLET PO SCH (09:50)
[2022-12-23 12:00] VITALS: BP_SYST 115; PULSE 73; RESP 20; TEMP 97.3; O2SAT 97
== END 2022-12-23 13:00 | disposition home health service (06) | DRG 313 ==
LOC: SED 23:33 → STU 12-20 02:04
PROVIDERS: ADMIT Internal Medicine; ATTEND Internal Medicine
DX: R07.89 Other chest pain (principal); N17.0 Acute kidney failure with tubular necrosis; E44.0 Moderate protein-calorie malnutrition; I69.354 Hemiplegia and hemiparesis following cerebral infarction affecting left non-dominant side; I42.0 Dilated cardiomyopathy; N18.4 Chronic kidney disease, stage 4 (severe); N40.0 Benign prostatic hyperplasia without lower urinary tract symptoms; G40.909 Epilepsy, unspecified, not intractable, without status epilepticus; E78.5 Hyperlipidemia, unspecified; I48.0 Paroxysmal atrial fibrillation; D64.9 Anemia, unspecified; I12.9 Hypertensive chronic kidney disease with stage 1 through stage 4 chronic kidney disease, or unspecified chronic kidney disease; Z88.1 Allergy status to other antibiotic agents; Z88.8 Allergy status to other drugs, medicaments and biological substances; Z79.899 Other long term (current) drug therapy; Z95.0 Presence of cardiac pacemaker; Z68.26 Body mass index [BMI] 26.0-26.9, adult
CPT/HCPCS: 36415; 71045; 80048; 80053; 80061; 80162; 83735; 83880; 84443; 84484; 85025; 85610-TC; 85730-TC; 93005; 93306; 97110-GP; 97116-GP; 97530-GP; 99285; G0378

== ENCOUNTER 2023-06-23 08:50 | Inpatient (IN) | payer OTHER ==
[~2023-06-23] VITALS: Ht 172.7 cm; Wt 94.4 kg
[~2023-06-23 08:50] MED LIST changes: +CARV12.548 PO; -COR6.25 PO; -DIGO125T PO; +FERR325T30 PO; +FLUT16SP16 NS; +FLUT50DI IH; +TAMS-11 PO
[2023-06-23 08:55] VITALS: BP_SYST 154; PULSE 119; RESP 26; TEMP 98.5; O2SAT 93
[2023-06-23 09:14] LABS: ABG O2 SAT% ESTIMATE 90.9 % (94.0-100.0); BLOOD GAS HCO3 25.6 mmol/L (21.0-27.0); BLOOD GAS PO2 67.1 mmHg (75.0-100.0)
[2023-06-23 09:17] LABS: BLOOD GAS PCO2 54.8 mmHg (32.0-45.0); BLOOD GAS PH 7.287 (7.350-7.450)
[2023-06-23 09:18] LABS: ALLEN'S TEST POSITIVE (P)
[2023-06-23 09:31] LABS: BASOPHILS % (AUTO) 0.3 % (0.0-2.0); HEMATOCRIT 45.8 % (36-54); HEMOGLOBIN 15.1 g/dL (14.0-18.0); LYMPHOCYTES # (AUTO) 0.3 K/uL (1.0-5.5); LYMPHOCYTES % (AUTO) 2.8 % (20.5-51.5); MEAN CORPUSCULAR HEMOGLOBIN 32 pg (27-31); MEAN CORPUSCULAR HGB CONC 33 % (32-36); MEAN CORPUSCULAR VOLUME 97 fL (79.0-98.0); MONOCYTES # (AUTO) 0.5 K/uL (0.0-1.0); MONOCYTES % (AUTO) 5.4 % (1.7-9.3); NEUTROPHILS # (AUTO) 8.3 K/uL (1.8-7.7); NEUTROPHILS % (AUTO) 91.5 % (40.0-70.0); PLATELET COUNT (AUTO) 129 K/uL (130-430); RED BLOOD CELL COUNT(AUTO) 4.73 MIL/uL (4.2-6.2); RED CELL DISTRIBUTION WIDTH 15.3 % (9.0-15.0); WHITE BLOOD COUNT (AUTO) 9.1 K/uL (4.8-10.8)
[2023-06-23 09:46] LABS: ANION GAP 7 (5-15); CALCIUM 8.9 mg/dL (8.4-11.0); CARBON DIOXIDE 28 mmol/L (23-29); CHLORIDE 106 mmol/L (98-107); CREATININE 2.16 mg/dL (0.55-1.30); GLUCOSE 130 mg/dL (74-106); SODIUM SERUM 141 mmol/L (136-145); UREA NITROGEN, BLOOD 23 mg/dL (8-21)
[2023-06-23 10:05] LABS: ALANINE AMINOTRANSFERASE 21 U/L (12-78); ALBUMIN 3.2 g/dL (3.4-4.8); ASPARTATE AMINOTRANSFERASE 20 U/L (10-37); BILIRUBIN,DIRECT 0.6 mg/dL (0.0-0.3); TOTAL BILIRUBIN 3.5 mg/dL (0.0-1.0); TOTAL PROTEIN, SERUM 6.1 g/dL (6.4-8.3)
[2023-06-23] MEDS ORDERED: PIPERACILLIN/TAZO 3.375 GM in NS 50 ML IV ONE (10:45)
[2023-06-23] MEDS ORDERED: NACL 0.9% 1,000 ML IV ONE (10:45)
[2023-06-23] MEDS ORDERED: PIPERACILLIN/TAZOBACTAM 3.375 GM/VIAL (ZOSYN) IV ONE (11:00)
[2023-06-23] MEDS ORDERED: LEVE1000 PO (11:37)
[2023-06-23] MEDS ORDERED: AMIO100T4 PO (11:37)
[2023-06-23] MEDS ORDERED: ATOR40TA68 PO (11:37)
[2023-06-23] MEDS ORDERED: SACU1TAB PO (11:37)
[2023-06-23] MEDS ORDERED: PANT40TA45 PO (11:37)
[2023-06-23] MEDS ORDERED: FLUT50BL NS (11:37)
[2023-06-23] MEDS ORDERED: CARV25TA55 PO (11:37)
[2023-06-23] MEDS ORDERED: FERR325T30 PO (11:37)
[2023-06-23] MEDS ORDERED: methylPREDNISolone SOD SUCC/PF 62.5 MG/ML VIAL IVP ONE (11:45)
[2023-06-23] MEDS ORDERED: AZITHROMYCIN 500 MG in NS 250 ML IV ONE (11:45)
[2023-06-23] MEDS ORDERED: AZITHROMYCIN 500 MG/VIAL (ZITHROMAX) IV ONE (11:50)
[2023-06-23] MEDS ORDERED: RIVA15TA PO (13:11)
[2023-06-23] MEDS ORDERED: ACET325C5 PO (13:11)
[2023-06-23] MEDS ORDERED: SPIR25TA6 PO (13:11)
[2023-06-23] MEDS ORDERED: DOCU-159 PO (13:11)
[2023-06-23] MEDS ORDERED: TRAM50TA2 PO (13:11)
[2023-06-23] MEDS ORDERED: LOPE-178 PO (13:11)
[2023-06-23] MEDS ORDERED: TAMS-11 PO (13:11)
[2023-06-23] MEDS ORDERED: SIME80TA PO (13:11)
[2023-06-23] MEDS ORDERED: CHOL100062 PO (13:11)
[2023-06-23 14:05] VITALS: PULSE 127
[2023-06-23] MEDS ORDERED: DIGOXIN 0.5 MG/2 ML AMP ONE (14:54)
[2023-06-23] MEDS ORDERED: DIGOXIN 0.5 MG/2 ML AMP IVP ONE (15:00)
[2023-06-23] MEDS ORDERED: AZITHROMYCIN 500 MG in NS 250 ML IV SCH (15:45)
[2023-06-23 15:48] VITALS: BP_SYST 121; PULSE 127; O2SAT 97
[2023-06-23 16:21] VITALS: PULSE 126
[2023-06-23] MEDS ORDERED: cloNIDine HCL 0.1 MG TABLET PO PRN (18:15)
[2023-06-23] MEDS ORDERED: ACETAMINOPHEN PO SCH (18:15)
[2023-06-23] MEDS ORDERED: LOPERAMIDE HCL 2 MG CAPSULE PO SCH (18:15)
[2023-06-23] MEDS: PIPERACILLIN/TAZO 2.25G/DEX-IS 50 ML IV SCH (18:36)
[2023-06-23 19:51] VITALS: PULSE 105
[2023-06-23 20:04] LABS: INFLUENZA TYPE A Negative (NEGATIVE); INFLUENZA TYPE B NEGATIVE (NEGATIVE)
[2023-06-23] MEDS ORDERED: PANTOPRAZOLE SODIUM 40 MG TAB PO SCH (21:00)
[2023-06-23] MEDS: FUROSEMIDE 20 MG TABLET PO SCH (21:36)
[2023-06-23 22:30] VITALS: BP_SYST 127; PULSE 72; RESP 20; TEMP 97; O2SAT 98
[2023-06-23] MEDS: DOCUSATE SODIUM 100 MG CAPSULE PO SCH (23:44)
[2023-06-23] MEDS: levETIRAcetam 500 MG TABLET PO SCH (23:49)
[2023-06-23] MEDS: AMIODARONE HCL 200 MG TABLET PO SCH (23:50)
[2023-06-23] MEDS: CARVEDILOL 25 MG TABLET (COREG) PO SCH (23:51)
[2023-06-23] MEDS: SACUBITRIL/VALSARTAN 24 MG-26 MG 1 TABLET PO SCH (23:59)
[2023-06-24] VITALS (11 sets, daily range): BP systolic 90–134; PULSE 76–155; RESP 16–22; TEMP 96.4–98; O2SAT 89–98
[2023-06-24] MEDS: PIPERACILLIN/TAZO 2.25G/DEX-IS 50 ML IV SCH ×5 (00:02→23:48)
[2023-06-24 06:24] LABS: BASOPHILS % (AUTO) 0.1 % (0.0-2.0); HEMATOCRIT 44.2 % (36-54); HEMOGLOBIN 14.8 g/dL (14.0-18.0); LYMPHOCYTES # (AUTO) 0.3 K/uL (1.0-5.5); LYMPHOCYTES % (AUTO) 2.3 % (20.5-51.5); MEAN CORPUSCULAR HEMOGLOBIN 32 pg (27-31); MEAN CORPUSCULAR HGB CONC 34 % (32-36); MEAN CORPUSCULAR VOLUME 95 fL (79.0-98.0); MONOCYTES # (AUTO) 0.6 K/uL (0.0-1.0); MONOCYTES % (AUTO) 5.3 % (1.7-9.3); NEUTROPHILS % (AUTO) 92.3 % (40.0-70.0); PLATELET COUNT (AUTO) 106 K/uL (130-430); RED BLOOD CELL COUNT(AUTO) 4.64 MIL/uL (4.2-6.2); RED CELL DISTRIBUTION WIDTH 14.6 % (9.0-15.0); WHITE BLOOD COUNT (AUTO) 11.9 K/uL (4.8-10.8)
[2023-06-24 06:29] LABS: ANION GAP 6 (5-15); CALCIUM 8.5 mg/dL (8.4-11.0); CARBON DIOXIDE 30 mmol/L (23-29); CHLORIDE 106 mmol/L (98-107); CREATININE 1.93 mg/dL (0.55-1.30); GLUCOSE 106 mg/dL (74-106); POTASSIUM 4.1 mmol/L (3.5-5.1); SODIUM SERUM 142 mmol/L (136-145); UREA NITROGEN, BLOOD 29 mg/dL (8-21)
[2023-06-24 06:48] LABS: ALANINE AMINOTRANSFERASE 19 U/L (12-78); ALBUMIN 2.3 g/dL (3.4-4.8); ASPARTATE AMINOTRANSFERASE 21 U/L (10-37); TOTAL BILIRUBIN 2.5 mg/dL (0.0-1.0)
[2023-06-24] MEDS: PANTOPRAZOLE SODIUM 40 MG TAB PO SCH (08:14)
[2023-06-24] MEDS: METHYLPREDNISOLONE SOD SUCC 40 MG/ML VIAL IVP SCH ×2 (08:14→20:48)
[2023-06-24] MEDS: FUROSEMIDE 20 MG TABLET PO SCH (08:15)
[2023-06-24] MEDS: AMIODARONE HCL 200 MG TABLET PO SCH ×2 (08:15→20:49)
[2023-06-24] MEDS: CARVEDILOL 25 MG TABLET (COREG) PO SCH ×2 (08:16→20:50)
[2023-06-24] MEDS: SPIRONOLACTONE 25 MG TABLET (ALDACTONE) PO SCH (08:17)
[2023-06-24] MEDS: RIVAROXABAN 15 MG TABLET PO SCH (08:17)
[2023-06-24] MEDS: FERROUS SULFATE 325 MG TABLET.DR PO SCH (08:17)
[2023-06-24] MEDS: DOCUSATE SODIUM 100 MG CAPSULE PO SCH ×2 (08:18→20:49)
[2023-06-24] MEDS: levETIRAcetam 500 MG TABLET PO SCH ×2 (08:18→20:49)
[2023-06-24] MEDS: ATORVASTATIN 20 MG TABLET PO SCH (08:18)
[2023-06-24] MEDS: SACUBITRIL/VALSARTAN 24 MG-26 MG 1 TABLET PO SCH ×2 (08:18→20:51)
[2023-06-24] MEDS: TAMSULOSIN HCL 0.4 MG CAP PO SCH (08:18)
[2023-06-24] MEDS: IPRATROPIUM/ALBUTEROL SULFATE 3 ML AMPUL.NEB (DUONEB) INH PRN (08:46)
[2023-06-24] MEDS ORDERED: FLUTICASONE FUROATE NS SCH (09:00)
[2023-06-24] MEDS ORDERED: NON-FORMULARY MEDICATION (Cholecalciferol (Vitamin D3) (Vitamin D3) 1 CAP) PO SCH (09:00)
[2023-06-24] MEDS ORDERED: ACETAMINOPHEN 325 MG TABLET PO PRN (10:15)
[2023-06-24] MEDS ORDERED: LOPERAMIDE HCL 2 MG CAPSULE PO PRN (11:00)
[2023-06-24] MEDS: AZITHROMYCIN 500 MG in NS 250 ML IV SCH (12:01)
[2023-06-24] MEDS ORDERED: DIGOXIN 0.5 MG/2 ML AMP IVP ONE (13:00)
[2023-06-24] MEDS: dilTIAZem HCL IVP 5 MG/ML VIAL IVP PRN (13:45)
[2023-06-24 14:37] LABS: ALLEN'S TEST POSITIVE (P); BLOOD GAS BASE EXCESS 2.7 mmol/L (-3.0-3.0); BLOOD GAS HCO3 26.9 mmol/L (21.0-27.0); BLOOD GAS PCO2 39.9 mmHg (32.0-45.0); BLOOD GAS PH 7.446 (7.350-7.450); BLOOD GAS PO2 87.3 mmHg (75.0-100.0)
[2023-06-24] MEDS: FLUTICASONE PROPIONATE 50 mCg/SPRAY 16 GM NS SCH (17:30)
[2023-06-24] MEDS: SIMETHICONE 80 MG TAB.CHEW PO SCH (20:50)
[2023-06-25] VITALS (8 sets, daily range): BP systolic 116–139; PULSE 119–127; RESP 16–20; TEMP 97.9–98.9; O2SAT 92–97
[2023-06-25] MEDS: dilTIAZem HCL IVP 5 MG/ML VIAL IVP PRN ×3 (00:36→16:12)
[2023-06-25] MEDS: IPRATROPIUM/ALBUTEROL SULFATE 3 ML AMPUL.NEB (DUONEB) INH PRN ×2 (04:37→15:46)
[2023-06-25] MEDS: PIPERACILLIN/TAZO 2.25G/DEX-IS 50 ML IV SCH ×4 (05:59→23:44)
[2023-06-25 06:52] LABS: BASOPHILS % (AUTO) 0.1 % (0.0-2.0); HEMATOCRIT 48.4 % (36-54); HEMOGLOBIN 15.9 g/dL (14.0-18.0); LYMPHOCYTES # (AUTO) 0.3 K/uL (1.0-5.5); MEAN CORPUSCULAR HEMOGLOBIN 32 pg (27-31); MEAN CORPUSCULAR HGB CONC 33 % (32-36); MEAN CORPUSCULAR VOLUME 96 fL (79.0-98.0); MONOCYTES # (AUTO) 0.3 K/uL (0.0-1.0); MONOCYTES % (AUTO) 2.3 % (1.7-9.3); NEUTROPHILS # (AUTO) 13.3 K/uL (1.8-7.7); NEUTROPHILS % (AUTO) 95.6 % (40.0-70.0); PLATELET COUNT (AUTO) 136 K/uL (130-430); RED BLOOD CELL COUNT(AUTO) 5.04 MIL/uL (4.2-6.2); WHITE BLOOD COUNT (AUTO) 13.9 K/uL (4.8-10.8)
[2023-06-25 07:38] LABS: ALANINE AMINOTRANSFERASE 59 U/L (12-78); ALBUMIN 2.5 g/dL (3.4-4.8); ANION GAP 8 (5-15); ASPARTATE AMINOTRANSFERASE 51 U/L (10-37); CALCIUM 8.7 mg/dL (8.4-11.0); CARBON DIOXIDE 31 mmol/L (23-29); CHLORIDE 106 mmol/L (98-107); CREATININE 1.85 mg/dL (0.55-1.30); GLUCOSE 84 mg/dL (74-106); PHOSPHORUS 3.5 mg/dL (2.7-4.5); SODIUM SERUM 145 mmol/L (136-145); TOTAL BILIRUBIN 1.7 mg/dL (0.0-1.0); TOTAL PROTEIN, SERUM 5.5 g/dL (6.4-8.3); UREA NITROGEN, BLOOD 34 mg/dL (8-21)
[2023-06-25] MEDS: METHYLPREDNISOLONE SOD SUCC 40 MG/ML VIAL IVP SCH (08:23)
[2023-06-25] MEDS: CHOLECALCIFEROL (VITAMIN D3) 2,000 UNIT TABLET PO SCH (08:24)
[2023-06-25] MEDS: PANTOPRAZOLE SODIUM 40 MG TAB PO SCH (08:24)
[2023-06-25] MEDS: ATORVASTATIN 20 MG TABLET PO SCH (08:24)
[2023-06-25] MEDS: FUROSEMIDE 20 MG TABLET PO SCH (08:24)
[2023-06-25] MEDS: DOCUSATE SODIUM 100 MG CAPSULE PO SCH (08:24)
[2023-06-25] MEDS: CARVEDILOL 25 MG TABLET (COREG) PO SCH ×2 (08:25→22:27)
[2023-06-25] MEDS: levETIRAcetam 500 MG TABLET PO SCH ×2 (08:26→22:28)
[2023-06-25] MEDS: SPIRONOLACTONE 25 MG TABLET (ALDACTONE) PO SCH (08:26)
[2023-06-25] MEDS: TAMSULOSIN HCL 0.4 MG CAP PO SCH (08:26)
[2023-06-25] MEDS: AMIODARONE HCL 200 MG TABLET PO SCH ×2 (08:26→22:27)
[2023-06-25] MEDS: FERROUS SULFATE 325 MG TABLET.DR PO SCH (08:27)
[2023-06-25] MEDS: SIMETHICONE 80 MG TAB.CHEW PO SCH ×2 (08:30→22:28)
[2023-06-25] MEDS: SACUBITRIL/VALSARTAN 24 MG-26 MG 1 TABLET PO SCH ×2 (08:30→22:28)
[2023-06-25] MEDS: RIVAROXABAN 15 MG TABLET PO SCH (08:31)
[2023-06-25] MEDS: AZITHROMYCIN 500 MG in NS 250 ML IV SCH (12:44)
[2023-06-25] MEDS: FLUTICASONE PROPIONATE 50 mCg/SPRAY 16 GM NS SCH (17:43)
[2023-06-26] VITALS: BP_SYST 132; PULSE 120; RESP 16; TEMP 98.2; O2SAT 96
[2023-06-26] MEDS: PIPERACILLIN/TAZO 2.25G/DEX-IS 50 ML IV SCH ×3 (06:47→17:40)
[2023-06-26 07:26] LABS: BASOPHILS # (AUTO) 0.1 K/uL (0.0-0.2); BASOPHILS % (AUTO) 0.5 % (0.0-2.0); HEMATOCRIT 48.1 % (36-54); HEMOGLOBIN 15.9 g/dL (14.0-18.0); LYMPHOCYTES # (AUTO) 0.4 K/uL (1.0-5.5); LYMPHOCYTES % (AUTO) 2.7 % (20.5-51.5); MEAN CORPUSCULAR HEMOGLOBIN 32 pg (27-31); MEAN CORPUSCULAR HGB CONC 33 % (32-36); MEAN CORPUSCULAR VOLUME 96 fL (79.0-98.0); MONOCYTES # (AUTO) 0.5 K/uL (0.0-1.0); MONOCYTES % (AUTO) 2.9 % (1.7-9.3); NEUTROPHILS # (AUTO) 15.2 K/uL (1.8-7.7); NEUTROPHILS % (AUTO) 93.9 % (40.0-70.0); PLATELET COUNT (AUTO) 140 K/uL (130-430); RED BLOOD CELL COUNT(AUTO) 5.01 MIL/uL (4.2-6.2); RED CELL DISTRIBUTION WIDTH 14.8 % (9.0-15.0); WHITE BLOOD COUNT (AUTO) 16.2 K/uL (4.8-10.8)
[2023-06-26 07:29] LABS: ALANINE AMINOTRANSFERASE 89 U/L (12-78); ALBUMIN 2.5 g/dL (3.4-4.8); ANION GAP 10 (5-15); ASPARTATE AMINOTRANSFERASE 59 U/L (10-37); CALCIUM 8.8 mg/dL (8.4-11.0); CARBON DIOXIDE 28 mmol/L (23-29); CHLORIDE 108 mmol/L (98-107); GLUCOSE 93 mg/dL (74-106); POTASSIUM 4.7 mmol/L (3.5-5.1); SODIUM SERUM 146 mmol/L (136-145); TOTAL BILIRUBIN 1.7 mg/dL (0.0-1.0); TOTAL PROTEIN, SERUM 5.8 g/dL (6.4-8.3); UREA NITROGEN, BLOOD 36 mg/dL (8-21)
[2023-06-26 08:00] VITALS: BP_SYST 144; PULSE 120; TEMP 98.3; O2SAT 89
[2023-06-26] MEDS: ATORVASTATIN 20 MG TABLET PO SCH (08:30)
[2023-06-26] MEDS: PANTOPRAZOLE SODIUM 40 MG TAB PO SCH (08:31)
[2023-06-26] MEDS: RIVAROXABAN 10 MG TABLET PO SCH (08:31)
[2023-06-26] MEDS: TAMSULOSIN HCL 0.4 MG CAP PO SCH (08:32)
[2023-06-26] MEDS: AMIODARONE HCL 200 MG TABLET PO SCH ×2 (08:32→20:33)
[2023-06-26] MEDS: SPIRONOLACTONE 25 MG TABLET (ALDACTONE) PO SCH (08:32)
[2023-06-26] MEDS: CHOLECALCIFEROL (VITAMIN D3) 2,000 UNIT TABLET PO SCH (08:32)
[2023-06-26] MEDS: FERROUS SULFATE 325 MG TABLET.DR PO SCH (08:33)
[2023-06-26] MEDS: SIMETHICONE 80 MG TAB.CHEW PO SCH ×2 (08:33→20:31)
[2023-06-26] MEDS: FUROSEMIDE 20 MG TABLET PO SCH (08:43)
[2023-06-26] MEDS: SACUBITRIL/VALSARTAN 24 MG-26 MG 1 TABLET PO SCH ×2 (08:44→20:35)
[2023-06-26] MEDS: CARVEDILOL 25 MG TABLET (COREG) PO SCH ×2 (08:44→20:34)
[2023-06-26] MEDS: levETIRAcetam 500 MG TABLET PO SCH ×2 (08:44→20:32)
[2023-06-26 09:57] VITALS: BP_SYST 144; PULSE 120; O2SAT 90
[2023-06-26 11:06] VITALS: BP_SYST 152; PULSE 107; RESP 16; TEMP 97.4; O2SAT 93
[2023-06-26] MEDS: AZITHROMYCIN 500 MG in NS 250 ML IV SCH (12:32)
[2023-06-26 15:04] VITALS: BP_SYST 137; PULSE 111; RESP 16; TEMP 99.1; O2SAT 93
[2023-06-26] MEDS: FLUTICASONE PROPIONATE 50 mCg/SPRAY 16 GM NS SCH (17:39)
[2023-06-26 20:00] VITALS: BP_SYST 157; PULSE 127; RESP 18; TEMP 98.8; O2SAT 94
[2023-06-27] VITALS (8 sets, daily range): BP systolic 131–163; PULSE 76–126; RESP 16–20; TEMP 98–98.9; O2SAT 90–98
[2023-06-27] MEDS: PIPERACILLIN/TAZO 2.25G/DEX-IS 50 ML IV SCH ×4 (00:20→18:50)
[2023-06-27 06:55] LABS: BASOPHILS # (AUTO) 0.1 K/uL (0.0-0.2); BASOPHILS % (AUTO) 0.4 % (0.0-2.0); EOSINOPHILS % (AUTO) 0.1 % (0.0-4.0); HEMATOCRIT 47.4 % (36-54); HEMOGLOBIN 15.8 g/dL (14.0-18.0); LYMPHOCYTES # (AUTO) 0.3 K/uL (1.0-5.5); LYMPHOCYTES % (AUTO) 2.9 % (20.5-51.5); MEAN CORPUSCULAR HEMOGLOBIN 32 pg (27-31); MEAN CORPUSCULAR HGB CONC 33 % (32-36); MEAN CORPUSCULAR VOLUME 95 fL (79.0-98.0); MONOCYTES # (AUTO) 0.7 K/uL (0.0-1.0); NEUTROPHILS # (AUTO) 10.5 K/uL (1.8-7.7); NEUTROPHILS % (AUTO) 90.6 % (40.0-70.0); PLATELET COUNT (AUTO) 139 K/uL (130-430); RED BLOOD CELL COUNT(AUTO) 4.98 MIL/uL (4.2-6.2); RED CELL DISTRIBUTION WIDTH 14.6 % (9.0-15.0); WHITE BLOOD COUNT (AUTO) 11.6 K/uL (4.8-10.8)
[2023-06-27 07:45] LABS: ALANINE AMINOTRANSFERASE 88 U/L (12-78); ALBUMIN 2.5 g/dL (3.4-4.8); ANION GAP 11 (5-15); ASPARTATE AMINOTRANSFERASE 47 U/L (10-37); CALCIUM 8.8 mg/dL (8.4-11.0); CARBON DIOXIDE 28 mmol/L (23-29); CHLORIDE 110 mmol/L (98-107); CREATININE 1.71 mg/dL (0.55-1.30); GLUCOSE 77 mg/dL (74-106); POTASSIUM 3.7 mmol/L (3.5-5.1); SODIUM SERUM 149 mmol/L (136-145); TOTAL BILIRUBIN 1.9 mg/dL (0.0-1.0); TOTAL PROTEIN, SERUM 5.7 g/dL (6.4-8.3); UREA NITROGEN, BLOOD 33 mg/dL (8-21)
[2023-06-27] MEDS: FUROSEMIDE 20 MG TABLET PO SCH (09:26)
[2023-06-27] MEDS: PANTOPRAZOLE SODIUM 40 MG TAB PO SCH (09:27)
[2023-06-27] MEDS: levETIRAcetam 500 MG TABLET PO SCH ×2 (09:27→22:16)
[2023-06-27] MEDS: SIMETHICONE 80 MG TAB.CHEW PO SCH ×2 (09:27→22:19)
[2023-06-27] MEDS: TAMSULOSIN HCL 0.4 MG CAP PO SCH (09:27)
[2023-06-27] MEDS: FERROUS SULFATE 325 MG TABLET.DR PO SCH (09:27)
[2023-06-27] MEDS: ATORVASTATIN 20 MG TABLET PO SCH (09:28)
[2023-06-27] MEDS: SPIRONOLACTONE 25 MG TABLET (ALDACTONE) PO SCH (09:28)
[2023-06-27] MEDS: CARVEDILOL 25 MG TABLET (COREG) PO SCH ×2 (09:29→22:15)
[2023-06-27] MEDS: AMIODARONE HCL 200 MG TABLET PO SCH ×2 (09:29→22:16)
[2023-06-27] MEDS: CHOLECALCIFEROL (VITAMIN D3) 2,000 UNIT TABLET PO SCH (09:33)
[2023-06-27] MEDS: SACUBITRIL/VALSARTAN 24 MG-26 MG 1 TABLET PO SCH ×2 (09:39→22:19)
[2023-06-27] MEDS: RIVAROXABAN 10 MG TABLET PO SCH (09:43)
[2023-06-27] MEDS ORDERED: DILTIAZEM HCL 180 MG CAP.SR.24H PO ONE (10:00)
[2023-06-27] MEDS: AZITHROMYCIN 500 MG in NS 250 ML IV SCH (13:55)
[2023-06-27 14:03] LABS: ABG O2 SAT% ESTIMATE 96.1 % (94.0-100.0); BLOOD GAS BASE EXCESS 3.8 mmol/L (-3.0-3.0); BLOOD GAS HCO3 29.6 mmol/L (21.0-27.0); BLOOD GAS PCO2 48.8 mmHg (32.0-45.0); BLOOD GAS PH 7.401 (7.350-7.450); BLOOD GAS PO2 83.4 mmHg (75.0-100.0)
[2023-06-27 14:08] LABS: ALLEN'S TEST POSITIVE (P)
[2023-06-27] MEDS ORDERED: RIVA10TA PO (17:19)
[2023-06-27] MEDS ORDERED: DILT180C66 PO (17:19)
[2023-06-27] MEDS ORDERED: VITD2000 PO (17:19)
[2023-06-27] MEDS ORDERED: IPRA3AMP9 INH (17:19)
[2023-06-27] MEDS: FLUTICASONE PROPIONATE 50 mCg/SPRAY 16 GM NS SCH (18:00)
[2023-06-27] MEDS: traMADol HCL HCL 50 MG TABLET (ULTRAM) PO PRN (22:13)
[2023-06-28 00:28] VITALS: BP_SYST 156; PULSE 57; RESP 18; TEMP 97.6; O2SAT 100
[2023-06-28 06:14] LABS: BASOPHILS % (AUTO) 0.3 % (0.0-2.0); EOSINOPHILS # (AUTO) 0.1 K/uL (0.0-0.4); EOSINOPHILS % (AUTO) 1.2 % (0.0-4.0); HEMATOCRIT 47.2 % (36-54); HEMOGLOBIN 15.7 g/dL (14.0-18.0); LYMPHOCYTES # (AUTO) 0.2 K/uL (1.0-5.5); LYMPHOCYTES % (AUTO) 3.4 % (20.5-51.5); MEAN CORPUSCULAR HEMOGLOBIN 32 pg (27-31); MEAN CORPUSCULAR HGB CONC 33 % (32-36); MEAN CORPUSCULAR VOLUME 95 fL (79.0-98.0); MONOCYTES # (AUTO) 0.6 K/uL (0.0-1.0); MONOCYTES % (AUTO) 8.7 % (1.7-9.3); NEUTROPHILS # (AUTO) 5.8 K/uL (1.8-7.7); NEUTROPHILS % (AUTO) 86.4 % (40.0-70.0); PLATELET COUNT (AUTO) 133 K/uL (130-430); RED BLOOD CELL COUNT(AUTO) 4.95 MIL/uL (4.2-6.2); RED CELL DISTRIBUTION WIDTH 14.7 % (9.0-15.0); WHITE BLOOD COUNT (AUTO) 6.7 K/uL (4.8-10.8)
[2023-06-28] MEDS: PIPERACILLIN/TAZO 2.25G/DEX-IS 50 ML IV SCH ×5 (06:46→23:55)
[2023-06-28 06:48] LABS: ALANINE AMINOTRANSFERASE 64 U/L (12-78); ALBUMIN 2.5 g/dL (3.4-4.8); ANION GAP 7 (5-15); ASPARTATE AMINOTRANSFERASE 29 U/L (10-37); CALCIUM 8.4 mg/dL (8.4-11.0); CARBON DIOXIDE 32 mmol/L (23-29); CHLORIDE 110 mmol/L (98-107); CREATININE 1.42 mg/dL (0.55-1.30); GLUCOSE 84 mg/dL (74-106); POTASSIUM 3.2 mmol/L (3.5-5.1); SODIUM SERUM 149 mmol/L (136-145); TOTAL BILIRUBIN 2.3 mg/dL (0.0-1.0); TOTAL PROTEIN, SERUM 5.3 g/dL (6.4-8.3); UREA NITROGEN, BLOOD 24 mg/dL (8-21)
[2023-06-28 08:00] VITALS: BP_SYST 124; PULSE 126; RESP 20; TEMP 98; O2SAT 93; O2SAT 95
[2023-06-28] MEDS ORDERED: DILTIAZEM HCL 180 MG CAP.SR.24H PO SCH (09:00)
[2023-06-28] MEDS: AMIODARONE HCL 200 MG TABLET PO SCH ×2 (10:31→20:50)
[2023-06-28] MEDS: SPIRONOLACTONE 25 MG TABLET (ALDACTONE) PO SCH (10:32)
[2023-06-28] MEDS: ATORVASTATIN 20 MG TABLET PO SCH (10:32)
[2023-06-28] MEDS: CHOLECALCIFEROL (VITAMIN D3) 2,000 UNIT TABLET PO SCH (10:33)
[2023-06-28] MEDS: TAMSULOSIN HCL 0.4 MG CAP PO SCH (10:33)
[2023-06-28] MEDS: FERROUS SULFATE 325 MG TABLET.DR PO SCH (10:33)
[2023-06-28] MEDS: PANTOPRAZOLE SODIUM 40 MG TAB PO SCH (10:34)
[2023-06-28] MEDS: CARVEDILOL 25 MG TABLET (COREG) PO SCH ×2 (10:35→20:50)
[2023-06-28] MEDS: SACUBITRIL/VALSARTAN 24 MG-26 MG 1 TABLET PO SCH ×2 (10:38→20:49)
[2023-06-28] MEDS: levETIRAcetam 500 MG TABLET PO SCH ×2 (10:38→20:49)
[2023-06-28] MEDS: SIMETHICONE 80 MG TAB.CHEW PO SCH ×2 (10:38→20:50)
[2023-06-28] MEDS: RIVAROXABAN 10 MG TABLET PO SCH (10:39)
[2023-06-28 11:06] VITALS: BP_SYST 143; PULSE 112; RESP 16; TEMP 97.7; O2SAT 93
[2023-06-28] MEDS ORDERED: POTASSIUM CHLORIDE 20 MEQ TABLET.ER PO ONE (13:30)
[2023-06-28] MEDS: AZITHROMYCIN 500 MG in NS 250 ML IV SCH (14:25)
[2023-06-28 15:54] VITALS: BP_SYST 140; PULSE 127; RESP 16; TEMP 96; O2SAT 97
[2023-06-28] MEDS ORDERED: D5W 1,000 ML IV SCH (17:00)
[2023-06-28] MEDS ORDERED: PIPE2.257 IV (17:06)
[2023-06-28] MEDS: FLUTICASONE PROPIONATE 50 mCg/SPRAY 16 GM NS SCH (18:00)
[2023-06-28 19:52] VITALS: O2SAT 96
[2023-06-28 20:00] VITALS: BP_SYST 143; PULSE 124; RESP 16; TEMP 98; O2SAT 93
[2023-06-28] MEDS: DILTIAZEM HCL 180 MG CAP.SR.24H PO SCH (20:53)
[2023-06-28] MEDS: traMADol HCL HCL 50 MG TABLET (ULTRAM) PO PRN (22:56)
[2023-06-29 01:17] VITALS: BP_SYST 115; PULSE 103; RESP 18; TEMP 97.7; O2SAT 98
[2023-06-29] MEDS: PIPERACILLIN/TAZO 2.25G/DEX-IS 50 ML IV SCH ×2 (06:11→12:46)
[2023-06-29 06:50] LABS: ALANINE AMINOTRANSFERASE 53 U/L (12-78); ALBUMIN 2.3 g/dL (3.4-4.8); ANION GAP 5 (5-15); ASPARTATE AMINOTRANSFERASE 21 U/L (10-37); CALCIUM 8.2 mg/dL (8.4-11.0); CARBON DIOXIDE 33 mmol/L (23-29); CHLORIDE 110 mmol/L (98-107); CREATININE 1.26 mg/dL (0.55-1.30); GLUCOSE 120 mg/dL (74-106); POTASSIUM 3.5 mmol/L (3.5-5.1); SODIUM SERUM 148 mmol/L (136-145); TOTAL BILIRUBIN 1.8 mg/dL (0.0-1.0); UREA NITROGEN, BLOOD 18 mg/dL (8-21)
[2023-06-29 07:19] LABS: BASOPHILS % (AUTO) 0.1 % (0.0-2.0); EOSINOPHILS # (AUTO) 0.1 K/uL (0.0-0.4); EOSINOPHILS % (AUTO) 2.7 % (0.0-4.0); HEMATOCRIT 45.3 % (36-54); HEMOGLOBIN 15.1 g/dL (14.0-18.0); LYMPHOCYTES # (AUTO) 0.3 K/uL (1.0-5.5); LYMPHOCYTES % (AUTO) 5.8 % (20.5-51.5); MEAN CORPUSCULAR HEMOGLOBIN 32 pg (27-31); MEAN CORPUSCULAR HGB CONC 33 % (32-36); MEAN CORPUSCULAR VOLUME 95 fL (79.0-98.0); MONOCYTES # (AUTO) 0.6 K/uL (0.0-1.0); MONOCYTES % (AUTO) 10.4 % (1.7-9.3); NEUTROPHILS # (AUTO) 4.3 K/uL (1.8-7.7); PLATELET COUNT (AUTO) 140 K/uL (130-430); RED BLOOD CELL COUNT(AUTO) 4.78 MIL/uL (4.2-6.2); RED CELL DISTRIBUTION WIDTH 14.4 % (9.0-15.0); WHITE BLOOD COUNT (AUTO) 5.3 K/uL (4.8-10.8)
[2023-06-29 08:00] VITALS: BP_SYST 127; PULSE 120; RESP 17; TEMP 97.1; O2SAT 93; O2SAT 94
[2023-06-29] MEDS: TAMSULOSIN HCL 0.4 MG CAP PO SCH (08:37)
[2023-06-29] MEDS: CHOLECALCIFEROL (VITAMIN D3) 2,000 UNIT TABLET PO SCH (08:37)
[2023-06-29] MEDS: ATORVASTATIN 20 MG TABLET PO SCH (08:37)
[2023-06-29] MEDS: SIMETHICONE 80 MG TAB.CHEW PO SCH (08:37)
[2023-06-29] MEDS: AMIODARONE HCL 200 MG TABLET PO SCH (08:38)
[2023-06-29] MEDS: PANTOPRAZOLE SODIUM 40 MG TAB PO SCH (08:39)
[2023-06-29] MEDS: SACUBITRIL/VALSARTAN 24 MG-26 MG 1 TABLET PO SCH (08:39)
[2023-06-29] MEDS: FERROUS SULFATE 325 MG TABLET.DR PO SCH (08:39)
[2023-06-29] MEDS: DILTIAZEM HCL 180 MG CAP.SR.24H PO SCH (08:39)
[2023-06-29] MEDS: CARVEDILOL 25 MG TABLET (COREG) PO SCH (08:39)
[2023-06-29] MEDS: levETIRAcetam 500 MG TABLET PO SCH (08:40)
[2023-06-29] MEDS: SPIRONOLACTONE 25 MG TABLET (ALDACTONE) PO SCH (08:40)
[2023-06-29] MEDS: RIVAROXABAN 10 MG TABLET PO SCH (08:44)
[2023-06-29] MEDS: traMADol HCL HCL 50 MG TABLET (ULTRAM) PO PRN (09:06)
[2023-06-29] MEDS ORDERED: AMIODARONE HCL 200 MG TABLET PO ONE (10:45)
[2023-06-29 15:00] VITALS: BP_SYST 108; PULSE 119; RESP 16; TEMP 97.7; O2SAT 99
[2023-06-29] MEDS ORDERED: DIGOXIN 0.5 MG/2 ML AMP IVP ONE (15:15)
[2023-06-29 15:33] VITALS: BP_SYST 108; PULSE 119; RESP 17; TEMP 97.1; O2SAT 94
[2023-06-29 16:50] VITALS: PULSE 119; O2SAT 94
[2023-06-29] MEDS ORDERED: AMIODARONE HCL 200 MG TABLET PO SCH (21:00)
== END 2023-06-29 16:30 | DRG 871 ==
LOC: SED 08:50 → STU 11:25
PROVIDERS: ADMIT Internal Medicine; ATTEND Internal Medicine
PROC: 5A09357 Assistance with Respiratory Ventilation, Less than 24 Consecutive Hours, Continuous Positive Airway Pressure (ICD-10-PCS; principal; 2023-06-23)
DX: A41.9 Sepsis, unspecified organism (principal); I50.43 Acute on chronic combined systolic (congestive) and diastolic (congestive) heart failure; J18.9 Pneumonia, unspecified organism; J96.01 Acute respiratory failure with hypoxia; N17.0 Acute kidney failure with tubular necrosis; I13.0 Hypertensive heart and chronic kidney disease with heart failure and stage 1 through stage 4 chronic kidney disease, or unspecified chronic kidney disease; I69.354 Hemiplegia and hemiparesis following cerebral infarction affecting left non-dominant side; I42.2 Other hypertrophic cardiomyopathy; E87.29 Other acidosis; D69.6 Thrombocytopenia, unspecified; N18.9 Chronic kidney disease, unspecified; L08.9 Local infection of the skin and subcutaneous tissue, unspecified; Z20.822 Contact with and (suspected) exposure to COVID-19; I48.0 Paroxysmal atrial fibrillation; Z87.891 Personal history of nicotine dependence; Z85.46 Personal history of malignant neoplasm of prostate; Z88.1 Allergy status to other antibiotic agents; Z88.8 Allergy status to other drugs, medicaments and biological substances; Z95.810 Presence of automatic (implantable) cardiac defibrillator
CPT/HCPCS: 36415; 36600; 71045; 76770; 80048; 80053; 80076; 82140; 82800-TC; 82803; 83605; 83880; 84100; 84484; 85025; 87040; 87081; 93005; 93971; 94640; 94660; 94664; 94760; 96365; 97116-GP; 97163-GP; 97530-GP; 99285; G0378; J0456; J1030; J1160; J2543; J2930; J3490; J7050

== ENCOUNTER 2023-08-21 12:39 | Inpatient (IN) | payer OTHER ==
[~2023-08-21] VITALS: Ht 188 cm; Wt 112.9 kg
[2023-08-21 12:39] VITALS: BP_SYST 162; PULSE 110; RESP 16; TEMP 98; O2SAT 94
[~2023-08-21 12:39] MED LIST changes: +ACET325C5 PO; -ACET325T PO; +AMIO100T4 PO; -AMIO200T66 PO; +ATOR40TA68 PO; -CARV12.548 PO; +CARV25TA55 PO; +CHOL100062 PO; +DILT180C66 PO; -DOCU-156 PO; +DOCU-159 PO; -FLUT16SP16 NS; +FLUT50BL NS; -FLUT50DI IH; -HYDR25TA4 PO; +IPRA3AMP9 INH; +LEVE1000 PO; -LEVE500T21 PO; +LOPE-178 PO; -LORA10TA7 PO; -MAGN400C PO; +PANT40TA45 PO; +PIPE2.257 IV; +RIVA10TA PO; -RIVA20TA PO; -ROSU10TA2 PO; -SENN8.6T19 PO; +SIME80TA PO; -SIME80TA15 PO; +SPIR25TA6 PO; -TRAM50TA PO; +TRAM50TA2 PO; +VITD2000 PO
[2023-08-21] MEDS: NS 1000 ML IV.SOLN IV ONE (14:49)
[2023-08-21] MEDS: KETOROLAC TROMETHAMINE 30 MG VIAL IVP ONE (15:31)
[2023-08-21] MEDS ORDERED: PIPERACILLIN/TAZOBACTAM 3.375 GM/VIAL (ZOSYN) IV ONE (15:32)
[2023-08-21] MEDS: PIPERACILLIN/TAZO 3.375 GM in NS 50 ML IV ONE (16:46)
[2023-08-21] MEDS ORDERED: IPRA4AER INH (17:19)
[2023-08-21] MEDS ORDERED: RIVA15TA PO (17:19)
[2023-08-21] MEDS ORDERED: MAGNESIUM SULFATE 50 ML IV PRN (17:45)
[2023-08-21] MEDS ORDERED: POTASSIUM CHLORIDE 20 MEQ TABLET.ER PO PRN (17:45)
[2023-08-21] MEDS ORDERED: DOCUSATE SODIUM 100 MG CAPSULE PO PRN (17:45)
[2023-08-21] MEDS ORDERED: LORazepam 2 MG/ML VIAL IVP PRN (17:45)
[2023-08-21] MEDS ORDERED: MORPHINE 2 MG/ML INJ. SYRINGE IVP PRN (17:45)
[2023-08-21] MEDS ORDERED: ONDANSETRON HCL 4 MG/2 ML VIAL IVP PRN (17:45)
[2023-08-21 17:50] VITALS: PULSE 110; O2SAT 94
[2023-08-21] MEDS ORDERED: ACETAMINOPHEN 500 MG TABLET PO PRN ×3 (18:00)
[2023-08-21 18:45] VITALS: BP_SYST 148; PULSE 118; RESP 18; TEMP 98.1; O2SAT 94
[2023-08-21 19:05] LABS: BASOPHILS # (AUTO) 0.1 K/uL (0.0-0.2); BASOPHILS % (AUTO) 0.8 % (0.0-2.0); EOSINOPHILS % (AUTO) 0.4 % (0.0-4.0); HEMATOCRIT 35.5 % (36-54); HEMOGLOBIN 11.6 g/dL (14.0-18.0); LYMPHOCYTES # (AUTO) 0.4 K/uL (1.0-5.5); MEAN CORPUSCULAR HEMOGLOBIN 32 pg (27-31); MEAN CORPUSCULAR HGB CONC 33 % (32-36); MEAN CORPUSCULAR VOLUME 98 fL (79.0-98.0); MONOCYTES # (AUTO) 0.8 K/uL (0.0-1.0); MONOCYTES % (AUTO) 10.9 % (1.7-9.3); NEUTROPHILS # (AUTO) 5.7 K/uL (1.8-7.7); NEUTROPHILS % (AUTO) 81.9 % (40.0-70.0); PLATELET COUNT (AUTO) 116 K/uL (130-430); RED BLOOD CELL COUNT(AUTO) 3.64 MIL/uL (4.2-6.2); RED CELL DISTRIBUTION WIDTH 16.7 % (9.0-15.0)
[2023-08-21 19:09] LABS: ANION GAP 7 (5-15); CALCIUM 8.2 mg/dL (8.4-11.0); CARBON DIOXIDE 30 mmol/L (23-29); CHLORIDE 111 mmol/L (98-107); CREATININE 1.49 mg/dL (0.55-1.30); GLUCOSE 75 mg/dL (74-106); POTASSIUM 4.4 mmol/L (3.5-5.1); SODIUM SERUM 148 mmol/L (136-145); UREA NITROGEN, BLOOD 20 mg/dL (8-21)
[2023-08-21 19:13] LABS: INR 1.5 (0.80-1.20)
[2023-08-21 19:27] LABS: ALANINE AMINOTRANSFERASE 19 U/L (12-78); ALBUMIN 2.3 g/dL (3.4-4.8); ASPARTATE AMINOTRANSFERASE 15 U/L (10-37); BILIRUBIN,DIRECT 0.5 mg/dL (0.0-0.3); THYROID STIMULATING HORMONE 3.68 uIu/mL (0.34-4.82); TOTAL BILIRUBIN 1.9 mg/dL (0.0-1.0); TOTAL PROTEIN, SERUM 4.5 g/dL (6.4-8.3)
[2023-08-21 20:01] LABS: HEMOGLOBIN A1C 5.77 % (<5.7)
[2023-08-21] MEDS: FUROSEMIDE 20 MG/2 ML VIAL IVP ONE (20:23)
[2023-08-21] MEDS: NACL 0.9% 1,000 ML IV SCH (20:24)
[2023-08-21] MEDS: cefTRIAXone 1 GM in D5W 50 ML IV SCH (21:40)
[2023-08-21] MEDS: CARVEDILOL 25 MG TABLET (COREG) PO SCH (21:41)
[2023-08-21] MEDS: AMIODARONE HCL 200 MG TABLET PO SCH (21:41)
[2023-08-21] MEDS: RIVAROXABAN 15 MG TABLET PO SCH (21:42)
[2023-08-21] MEDS: levETIRAcetam 500 MG TABLET PO SCH (21:42)
[2023-08-21 22:31] VITALS: BP_SYST 151; PULSE 103; RESP 20; TEMP 98.8; O2SAT 97
[2023-08-21] MEDS: SACUBITRIL/VALSARTAN 24 MG-26 MG 1 TABLET PO SCH (23:34)
[2023-08-22 05:28] LABS: BASOPHILS % (AUTO) 0.3 % (0.0-2.0); EOSINOPHILS # (AUTO) 0.1 K/uL (0.0-0.4); EOSINOPHILS % (AUTO) 0.9 % (0.0-4.0); HEMATOCRIT 36.3 % (36-54); HEMOGLOBIN 11.9 g/dL (14.0-18.0); LYMPHOCYTES # (AUTO) 0.3 K/uL (1.0-5.5); MEAN CORPUSCULAR HEMOGLOBIN 32 pg (27-31); MEAN CORPUSCULAR HGB CONC 33 % (32-36); MEAN CORPUSCULAR VOLUME 98 fL (79.0-98.0); MONOCYTES # (AUTO) 0.7 K/uL (0.0-1.0); MONOCYTES % (AUTO) 11.1 % (1.7-9.3); NEUTROPHILS # (AUTO) 5.4 K/uL (1.8-7.7); NEUTROPHILS % (AUTO) 82.7 % (40.0-70.0); PLATELET COUNT (AUTO) 116 K/uL (130-430); RED BLOOD CELL COUNT(AUTO) 3.71 MIL/uL (4.2-6.2); RED CELL DISTRIBUTION WIDTH 16.9 % (9.0-15.0); WHITE BLOOD COUNT (AUTO) 6.6 K/uL (4.8-10.8)
[2023-08-22 05:35] LABS: ANION GAP 7 (5-15); CALCIUM 8.3 mg/dL (8.4-11.0); CARBON DIOXIDE 32 mmol/L (23-29); CHLORIDE 111 mmol/L (98-107); CREATININE 1.63 mg/dL (0.55-1.30); GLUCOSE 64 mg/dL (74-106); POTASSIUM 4.3 mmol/L (3.5-5.1); SODIUM SERUM 150 mmol/L (136-145); UREA NITROGEN, BLOOD 20 mg/dL (8-21)
[2023-08-22 07:55] VITALS: BP_SYST 141; PULSE 68; RESP 16; TEMP 97.2; O2SAT 99
[2023-08-22] MEDS ORDERED: FLUTICASONE FUROATE NS SCH (09:00)
[2023-08-22] MEDS ORDERED: FUROSEMIDE 20 MG/2 ML VIAL IVP SCH (09:00)
[2023-08-22 09:26] LABS: ABG O2 SAT% ESTIMATE 99.6 % (94.0-100.0); BLOOD GAS BASE EXCESS 2.5 mmol/L (-3.0-3.0); BLOOD GAS PCO2 46.2 mmHg (32.0-45.0); BLOOD GAS PO2 274.7 mmHg (75.0-100.0)
[2023-08-22 09:28] LABS: ALLEN'S TEST POSITIVE (P)
[2023-08-22] MEDS: FUROSEMIDE 40 MG/4 ML VIAL IVP ONE (09:30)
[2023-08-22] MEDS: FUROSEMIDE 40 MG/4 ML VIAL ONE (09:37)
[2023-08-22] MEDS: IPRATROPIUM/ALBUTEROL SULFATE 3 ML AMPUL.NEB (DUONEB) INH PRN (09:43)
[2023-08-22] MEDS: D5W 1,000 ML IV SCH (09:48)
[2023-08-22] MEDS: TAMSULOSIN HCL 0.4 MG CAP PO SCH (10:26)
[2023-08-22] MEDS: ATORVASTATIN 20 MG TABLET PO SCH (10:26)
[2023-08-22] MEDS: DILTIAZEM HCL 180 MG CAP.SR.24H PO SCH (10:28)
[2023-08-22] MEDS ORDERED: LORA2ORA SL (10:39)
[2023-08-22] MEDS ORDERED: MORP20SO SL (10:39)
[2023-08-22] MEDS ORDERED: SENN-153 PO (10:39)
[2023-08-22] MEDS ORDERED: BISA10SU77 RC (10:39)
[2023-08-22] MEDS ORDERED: HYDR-3917 PO (10:39)
[2023-08-22] MEDS ORDERED: [UNRECOGNIZED DRUG - CODE] PO (10:39)
[2023-08-22] MEDS ORDERED: NYST15CR36 TP (10:39)
[2023-08-22] MEDS ORDERED: IPRA3AMP9 INH (10:39)
[2023-08-22] MEDS ORDERED: ATRO1DRO PO (11:05)
[2023-08-22] MEDS: VANCOMYCIN HCL 1,500 MG in NS 250 ML IV SCH (13:15)
[2023-08-22 15:05] VITALS: BP_SYST 126; PULSE 122; RESP 16; TEMP 96.5; O2SAT 89
[2023-08-22] MEDS: FLUTICASONE PROPIONATE 50 mCg/SPRAY 16 GM NS SCH (18:00)
[2023-08-22 20:00] VITALS: BP_SYST 135; PULSE 70; RESP 20; TEMP 98.3; O2SAT 98
[2023-08-22] MEDS: levETIRAcetam 1,500 MG in NS 85 ML IV SCH (21:21)
[2023-08-22] MEDS: PIPERACILLIN/TAZO 3.375 GM in NS 50 ML IV SCH (21:22)
[2023-08-22] MEDS: ZOLPIDEM TARTRATE 5 MG TABLET PO PRN (22:05)
[2023-08-22] MEDS: FUROSEMIDE 40 MG/4 ML VIAL IVP SCH (22:06)
[2023-08-23 00:38] VITALS: BP_SYST 98; PULSE 104; RESP 16; TEMP 97.6; O2SAT 100
[2023-08-23] MEDS: MORPHINE 2 MG/ML INJ. SYRINGE IVP PRN (05:04)
[2023-08-23 06:22] LABS: BASOPHILS % (AUTO) 0.2 % (0.0-2.0); EOSINOPHILS # (AUTO) 0.1 K/uL (0.0-0.4); EOSINOPHILS % (AUTO) 1.6 % (0.0-4.0); HEMATOCRIT 31.9 % (36-54); HEMOGLOBIN 10.4 g/dL (14.0-18.0); LYMPHOCYTES # (AUTO) 0.3 K/uL (1.0-5.5); LYMPHOCYTES % (AUTO) 4.3 % (20.5-51.5); MEAN CORPUSCULAR HEMOGLOBIN 32 pg (27-31); MEAN CORPUSCULAR HGB CONC 33 % (32-36); MEAN CORPUSCULAR VOLUME 98 fL (79.0-98.0); MONOCYTES # (AUTO) 0.6 K/uL (0.0-1.0); MONOCYTES % (AUTO) 8.6 % (1.7-9.3); NEUTROPHILS # (AUTO) 5.7 K/uL (1.8-7.7); NEUTROPHILS % (AUTO) 85.3 % (40.0-70.0); PLATELET COUNT (AUTO) 112 K/uL (130-430); RED BLOOD CELL COUNT(AUTO) 3.25 MIL/uL (4.2-6.2); RED CELL DISTRIBUTION WIDTH 16.8 % (9.0-15.0); WHITE BLOOD COUNT (AUTO) 6.7 K/uL (4.8-10.8)
[2023-08-23 06:34] LABS: ANION GAP 6 (5-15); CALCIUM 7.8 mg/dL (8.4-11.0); CARBON DIOXIDE 34 mmol/L (23-29); CHLORIDE 110 mmol/L (98-107); CREATININE 1.55 mg/dL (0.55-1.30); GLUCOSE 89 mg/dL (74-106); POTASSIUM 3.7 mmol/L (3.5-5.1); SODIUM SERUM 150 mmol/L (136-145); UREA NITROGEN, BLOOD 17 mg/dL (8-21)
[2023-08-23 06:52] LABS: ALANINE AMINOTRANSFERASE 16 U/L (12-78); ALBUMIN 2.1 g/dL (3.4-4.8); ASPARTATE AMINOTRANSFERASE 14 U/L (10-37); TOTAL BILIRUBIN 1.2 mg/dL (0.0-1.0); TOTAL PROTEIN, SERUM 4.5 g/dL (6.4-8.3)
[2023-08-23 08:00] VITALS: BP_SYST 102; PULSE 111; RESP 16; TEMP 97.9; O2SAT 93; O2SAT 94
[2023-08-23 11:13] VITALS: BP_SYST 113; PULSE 106; RESP 17; TEMP 97.8; O2SAT 98
[2023-08-23 16:25] VITALS: BP_SYST 119; PULSE 100; RESP 17; TEMP 98; O2SAT 97
[2023-08-23 20:00] VITALS: BP_SYST 120; PULSE 100; RESP 20; TEMP 97; O2SAT 97
[2023-08-24] VITALS (9 sets, daily range): BP systolic 106–145; PULSE 84–126; RESP 17–24; TEMP 97.3–98.6; O2SAT 91–99
[2023-08-24 06:00] LABS: BASOPHILS % (AUTO) 0.4 % (0.0-2.0); EOSINOPHILS # (AUTO) 0.1 K/uL (0.0-0.4); EOSINOPHILS % (AUTO) 1.5 % (0.0-4.0); HEMATOCRIT 29.3 % (36-54); HEMOGLOBIN 9.9 g/dL (14.0-18.0); LYMPHOCYTES # (AUTO) 0.3 K/uL (1.0-5.5); LYMPHOCYTES % (AUTO) 3.6 % (20.5-51.5); MEAN CORPUSCULAR HEMOGLOBIN 33 pg (27-31); MEAN CORPUSCULAR HGB CONC 34 % (32-36); MEAN CORPUSCULAR VOLUME 96 fL (79.0-98.0); MONOCYTES # (AUTO) 0.6 K/uL (0.0-1.0); MONOCYTES % (AUTO) 8.7 % (1.7-9.3); NEUTROPHILS # (AUTO) 6.3 K/uL (1.8-7.7); NEUTROPHILS % (AUTO) 85.8 % (40.0-70.0); PLATELET COUNT (AUTO) 115 K/uL (130-430); RED BLOOD CELL COUNT(AUTO) 3.04 MIL/uL (4.2-6.2); RED CELL DISTRIBUTION WIDTH 16.2 % (9.0-15.0); WHITE BLOOD COUNT (AUTO) 7.3 K/uL (4.8-10.8)
[2023-08-24 06:26] LABS: ANION GAP 6 (5-15); CALCIUM 7.7 mg/dL (8.4-11.0); CARBON DIOXIDE 34 mmol/L (23-29); CHLORIDE 107 mmol/L (98-107); CREATININE 1.44 mg/dL (0.55-1.30); GLUCOSE 76 mg/dL (74-106); POTASSIUM 3.5 mmol/L (3.5-5.1); SODIUM SERUM 147 mmol/L (136-145); UREA NITROGEN, BLOOD 16 mg/dL (8-21)
[2023-08-24] MEDS: MUPIROCIN 2% TOPICAL OINTMENT 22 GM NS SCH (21:09)
[2023-08-25] VITALS (9 sets, daily range): BP systolic 123–148; PULSE 63–110; RESP 16–20; TEMP 96–97.8; O2SAT 94–100
[2023-08-25 05:32] LABS: BASOPHILS % (AUTO) 0.5 % (0.0-2.0); EOSINOPHILS # (AUTO) 0.1 K/uL (0.0-0.4); EOSINOPHILS % (AUTO) 1.9 % (0.0-4.0); HEMATOCRIT 30.6 % (36-54); HEMOGLOBIN 10.1 g/dL (14.0-18.0); LYMPHOCYTES # (AUTO) 0.3 K/uL (1.0-5.5); MEAN CORPUSCULAR HEMOGLOBIN 32 pg (27-31); MEAN CORPUSCULAR HGB CONC 33 % (32-36); MEAN CORPUSCULAR VOLUME 97 fL (79.0-98.0); MONOCYTES # (AUTO) 0.6 K/uL (0.0-1.0); MONOCYTES % (AUTO) 9.3 % (1.7-9.3); NEUTROPHILS # (AUTO) 5.6 K/uL (1.8-7.7); NEUTROPHILS % (AUTO) 83.3 % (40.0-70.0); PLATELET COUNT (AUTO) 137 K/uL (130-430); RED BLOOD CELL COUNT(AUTO) 3.15 MIL/uL (4.2-6.2); RED CELL DISTRIBUTION WIDTH 16.2 % (9.0-15.0); WHITE BLOOD COUNT (AUTO) 6.7 K/uL (4.8-10.8)
[2023-08-25 05:48] LABS: ANION GAP 4 (5-15); CALCIUM 8.2 mg/dL (8.4-11.0); CARBON DIOXIDE 35 mmol/L (23-29); CHLORIDE 106 mmol/L (98-107); CREATININE 1.36 mg/dL (0.55-1.30); GLUCOSE 72 mg/dL (74-106); POTASSIUM 3.6 mmol/L (3.5-5.1); SODIUM SERUM 145 mmol/L (136-145); UREA NITROGEN, BLOOD 15 mg/dL (8-21)
[2023-08-25] MEDS ORDERED: LEVE750T4 PO (10:58)
[2023-08-25] MEDS ORDERED: DOXY100C5 PO (10:58)
[2023-08-25] MEDS ORDERED: HYDROcodone/ACETAMIN 5-325 MG TAB (NORCO/ VICODIN) PO PRN (15:45)
[2023-08-25] MEDS ORDERED: HYDROcodone/ACETAMIN 10-325 MG TAB PO PRN (15:45)
[2023-08-25] MEDS ORDERED: CEFTAROLINE FOSAMIL ACETATE 400 MG in NS 250 ML IV SCH (21:00)
[2023-08-25] MEDS ORDERED: MUPIROCIN 1 GM OIN.PF.APP NS SCH (21:00)
== END 2023-08-25 16:15 | disposition hospice, home (50) | DRG 871 ==
LOC: SED 12:39 → STU 17:29
PROVIDERS: ADMIT General Practice; ATTEND General Practice
DX: A41.9 Sepsis, unspecified organism (principal); I50.33 Acute on chronic diastolic (congestive) heart failure; J96.01 Acute respiratory failure with hypoxia; L03.116 Cellulitis of left lower limb; I13.0 Hypertensive heart and chronic kidney disease with heart failure and stage 1 through stage 4 chronic kidney disease, or unspecified chronic kidney disease; G93.40 Encephalopathy, unspecified; I42.9 Cardiomyopathy, unspecified; I48.21 Permanent atrial fibrillation; I69.354 Hemiplegia and hemiparesis following cerebral infarction affecting left non-dominant side; E87.0 Hyperosmolality and hypernatremia; S50.12XA Contusion of left forearm, initial encounter; G40.909 Epilepsy, unspecified, not intractable, without status epilepticus; I11.0 Hypertensive heart disease with heart failure; C61 Malignant neoplasm of prostate; N28.1 Cyst of kidney, acquired; X58.XXXA Exposure to other specified factors, initial encounter; F03.90 Unspecified dementia, unspecified severity, without behavioral disturbance, psychotic disturbance, mood disturbance, and anxiety; N18.9 Chronic kidney disease, unspecified; J44.9 Chronic obstructive pulmonary disease, unspecified; Z88.1 Allergy status to other antibiotic agents; Z88.8 Allergy status to other drugs, medicaments and biological substances; Z79.899 Other long term (current) drug therapy; Z79.01 Long term (current) use of anticoagulants; Z87.891 Personal history of nicotine dependence; Z95.810 Presence of automatic (implantable) cardiac defibrillator; Z99.3 Dependence on wheelchair; Z79.1 Long term (current) use of non-steroidal anti-inflammatories (NSAID); Y93.89 Activity, other specified; Y92.89 Other specified places as the place of occurrence of the external cause; Y99.8 Other external cause status
CPT/HCPCS: 36415; 36600; 70450-TC; 71045; 73200-TC; 80048; 80053; 80076; 82803; 82948; 83037; 83605; 83735; 83880; 84443; 84484; 85025; 85610; 85730; 87040; 87070; 87075; 87081; 87186; 93005; 93971; 94640; 94760; 96365; 96375; 99285; G0378; J0696; J0712; J1885; J1940; J1953; J2270; J2543; J3370; J7050; J7060